=== PATIENT | female | born 1935 | race Caucasian/White ===

== ENCOUNTER 2016-07-28 09:53 | Outpatient (CLI) | END 2016-07-28 09:54 | disposition home or self-care (01) ==

== ENCOUNTER 2016-09-03 08:24 | Outpatient (CLI) | payer MEDICARE, BC | END 2016-09-03 08:25 | disposition home or self-care (01) | DX: E78.2 Mixed hyperlipidemia (principal); E03.9 Hypothyroidism, unspecified; Z79.899 Other long term (current) drug therapy ==

== ENCOUNTER 2017-05-11 13:05 | Outpatient (CLI) | payer MEDICARE, BC | END 2017-05-11 13:06 | disposition home or self-care (01) | LOC: LAB 13:05 | PROVIDERS: ATTEND Internal Medicine Rheumatology | DX: M81.0 Age-related osteoporosis without current pathological fracture (principal) | CPT/HCPCS: 36415; 82306 ==

== ENCOUNTER 2017-09-03 08:46 | Outpatient (CLI) | payer MEDICARE, BC ==
[2017-09-03 12:52] LABS: BASOPHILS # (AUTO) 0.1 10^3/uL (0.0-0.1); BASOPHILS % (AUTO) 1.3 %; EOSINOPHILS # (AUTO) 0.1 10^3/uL (0.0-0.7); EOSINOPHILS % (AUTO) 1.4 %; HGB - HEMOGLOBIN 12.2 g/dL (12.0-16.0); LYMPHOCYTES % (AUTO) 21.7 %; MEAN CORPUSCULAR HEMOGLOBIN 33.9 pg (27.0-31.0); MEAN CORPUSCULAR HGB CONC 34.1 g/dL (32.0-36.0); MEAN CORPUSCULAR VOLUME 99.5 fL (81.0-99.0); MONOCYTES # (AUTO) 0.4 10^3/uL (0.0-1.0); MONOCYTES % (AUTO) 7.8 %; NEUTROPHILS # (AUTO) 3.2 10^3/uL (1.5-6.6); NEUTROPHILS % (AUTO) 67.8 %; PLT - PLATELET COUNT 271 10^3/uL (130-450); RED CELL DISTRIBUTION WIDTH 14.2 % (12.0-15.0); WHITE BLOOD COUNT 4.7 x10^3/uL (4.8-10.8)
[2017-09-03 13:04] LABS: ALBUMIN 3.4 g/dL (3.2-5.5); ALKALINE PHOSPHATASE 36 IU/L (42-121); ALT ALANINE AMINOTRANSFERASE 14 IU/L (10-60); AST ASPARTATE AMINOTRANSFERASE 27 IU/L (10-42); BILIRUBIN,TOTAL 0.6 mg/dL (0.2-1.0); BUN - BLOOD UREA NITROGEN 20 mg/dL (6-20); CALCIUM 8.7 mg/dL (8.5-10.3); CARBON DIOXIDE - CO2 27 mmol/L (21-32); CHLORIDE 97 mmol/L (101-111); CHOL/HDL RATIO 1.9 (<4.4); CHOLESTEROL 160 mg/dL; CREATININE 0.8 mg/dL (0.4-1.0); GFR - MDRD 69 (>89); GLUCOSE 80 mg/dL (70-100); HDL CHOLESTEROL 85 mg/dL; LDL CHOLESTEROL,CALCULATED 61 mg/dL; LDL/HDL RATIO 0.7 (<4.4); SODIUM 132 mmol/L (135-145); TOTAL PROTEIN 6.8 g/dL (6.7-8.2); VLDL CHOLESTEROL 14 mg/dL
== END 2017-09-03 08:47 | disposition home or self-care (01) ==
LOC: LAB.R 08:46
PROVIDERS: ATTEND Internal Medicine
DX: M81.0 Age-related osteoporosis without current pathological fracture (principal); E03.9 Hypothyroidism, unspecified; E78.5 Hyperlipidemia, unspecified; I10 Essential (primary) hypertension; M12.9 Arthropathy, unspecified; Z79.899 Other long term (current) drug therapy
CPT/HCPCS: 80053; 80061; 83721; 84443; 85025

== ENCOUNTER 2018-05-24 14:06 | Outpatient (CLI) | payer MEDICARE, BC ==
[2018-05-24 14:48] LABS: BASOPHILS # (AUTO) 0.1 10^3/uL (0.0-0.1); BASOPHILS % (AUTO) 1.4 %; EOSINOPHILS % (AUTO) 0.8 %; HGB - HEMOGLOBIN 11.9 g/dL (12.0-16.0); LYMPHOCYTES # (AUTO) 0.6 10^3/uL (1.5-3.5); MEAN CORPUSCULAR HEMOGLOBIN 34.5 pg (27.0-31.0); MEAN CORPUSCULAR HGB CONC 34.5 g/dL (32.0-36.0); MEAN CORPUSCULAR VOLUME 100.1 fL (81.0-99.0); MEAN PLATELET VOLUME 7.4 fL (7.9-10.8); MONOCYTES # (AUTO) 0.2 10^3/uL (0.0-1.0); MONOCYTES % (AUTO) 4.1 %; NEUTROPHILS # (AUTO) 4.8 10^3/uL (1.5-6.6); NEUTROPHILS % (AUTO) 82.7 %; PLT - PLATELET COUNT 317 10^3/uL (130-450); RED BLOOD COUNT 3.44 10^6/uL (4.20-5.40); RED CELL DISTRIBUTION WIDTH 14.1 % (12.0-15.0); WHITE BLOOD COUNT 5.8 x10^3/uL (4.8-10.8)
[2018-05-24 14:52] LABS: ALBUMIN 3.6 g/dL (3.2-5.5); ALKALINE PHOSPHATASE 45 IU/L (42-121); ALT ALANINE AMINOTRANSFERASE 15 IU/L (10-60); AST ASPARTATE AMINOTRANSFERASE 32 IU/L (10-42); BILIRUBIN,TOTAL 0.8 mg/dL (0.2-1.0); BUN - BLOOD UREA NITROGEN 23 mg/dL (6-20); CALCIUM 8.9 mg/dL (8.5-10.3); CARBON DIOXIDE - CO2 29 mmol/L (21-32); CHLORIDE 96 mmol/L (101-111); CREATININE 0.7 mg/dL (0.4-1.0); GFR - MDRD 80 (>89); GLUCOSE 112 mg/dL (70-100); SODIUM 133 mmol/L (135-145); TOTAL PROTEIN 7.1 g/dL (6.7-8.2)
[2018-05-24 15:05] LABS: CRP - C-REACTIVE PROTEIN < 1.0 mg/dL (0-1.0)
== END 2018-05-24 14:07 | disposition home or self-care (01) ==
LOC: LAB 14:06
PROVIDERS: ATTEND Nurse Practitioner Family
DX: M05.9 Rheumatoid arthritis with rheumatoid factor, unspecified (principal); Z79.899 Other long term (current) drug therapy; Z51.81 Encounter for therapeutic drug level monitoring; M81.0 Age-related osteoporosis without current pathological fracture
CPT/HCPCS: 36415; 80053; 82306; 85025; 85651; 86140

== ENCOUNTER 2018-09-08 12:57 | Outpatient (CLI) | payer MEDICARE, BC ==
[2018-09-08 13:33] LABS: BASOPHILS # (AUTO) 0.1 10^3/uL (0.0-0.1); EOSINOPHILS # (AUTO) 0.1 10^3/uL (0.0-0.7); EOSINOPHILS % (AUTO) 0.8 %; HGB - HEMOGLOBIN 12.5 g/dL (12.0-16.0); LYMPHOCYTES # (AUTO) 0.6 10^3/uL (1.5-3.5); LYMPHOCYTES % (AUTO) 8.5 %; MEAN CORPUSCULAR HGB CONC 34.5 g/dL (32.0-36.0); MEAN CORPUSCULAR VOLUME 98.4 fL (81.0-99.0); MEAN PLATELET VOLUME 6.8 fL (7.9-10.8); MONOCYTES # (AUTO) 0.4 10^3/uL (0.0-1.0); MONOCYTES % (AUTO) 5.7 %; NEUTROPHILS # (AUTO) 6.2 10^3/uL (1.5-6.6); PLT - PLATELET COUNT 354 10^3/uL (130-450); RED BLOOD COUNT 3.69 10^6/uL (4.20-5.40); RED CELL DISTRIBUTION WIDTH 14.3 % (12.0-15.0); WHITE BLOOD COUNT 7.4 x10^3/uL (4.8-10.8)
[2018-09-08 13:55] LABS: ALBUMIN 3.6 g/dL (3.2-5.5); ALKALINE PHOSPHATASE 43 IU/L (42-121); ALT ALANINE AMINOTRANSFERASE 16 IU/L (10-60); AST ASPARTATE AMINOTRANSFERASE 31 IU/L (10-42); BILIRUBIN,TOTAL 0.7 mg/dL (0.2-1.0); BUN - BLOOD UREA NITROGEN 17 mg/dL (6-20); CALCIUM 8.8 mg/dL (8.5-10.3); CARBON DIOXIDE - CO2 29 mmol/L (21-32); CHLORIDE 93 mmol/L (101-111); CREATININE 0.8 mg/dL (0.4-1.0); GFR - MDRD 69 (>89); GLUCOSE 99 mg/dL (70-100); SODIUM 132 mmol/L (135-145); TOTAL PROTEIN 7.2 g/dL (6.7-8.2)
[2018-09-08 14:24] LABS: CRP - C-REACTIVE PROTEIN < 1.0 mg/dL (0-1.0)
== END 2018-09-08 12:58 | disposition home or self-care (01) ==
LOC: LAB 12:57
PROVIDERS: ATTEND Nurse Practitioner Family
DX: M81.0 Age-related osteoporosis without current pathological fracture (principal); Z79.899 Other long term (current) drug therapy; Z51.81 Encounter for therapeutic drug level monitoring; M05.9 Rheumatoid arthritis with rheumatoid factor, unspecified
CPT/HCPCS: 36415; 80053; 82306; 85025; 85651; 86140

== ENCOUNTER 2018-10-18 12:11 | Outpatient (CLI) | payer MEDICARE, BC | END 2018-10-18 12:12 | disposition home or self-care (01) | LOC: LAB 12:11 | PROVIDERS: ATTEND Family Medicine | DX: E03.9 Hypothyroidism, unspecified (principal) | CPT/HCPCS: 36415; 84443 ==

== ENCOUNTER 2018-12-15 11:59 | Outpatient (CLI) | payer MEDICARE, BC ==
[2018-12-15 12:17] LABS: BASOPHILS # (AUTO) 0.1 10^3/uL (0.0-0.1); BASOPHILS % (AUTO) 1.6 %; EOSINOPHILS % (AUTO) 0.7 %; HGB - HEMOGLOBIN 12.5 g/dL (12.0-16.0); LYMPHOCYTES # (AUTO) 0.5 10^3/uL (1.5-3.5); MEAN CORPUSCULAR HEMOGLOBIN 33.5 pg (27.0-31.0); MEAN CORPUSCULAR HGB CONC 33.5 g/dL (32.0-36.0); MEAN CORPUSCULAR VOLUME 99.9 fL (81.0-99.0); MEAN PLATELET VOLUME 7.1 fL (7.9-10.8); MONOCYTES # (AUTO) 0.4 10^3/uL (0.0-1.0); MONOCYTES % (AUTO) 5.2 %; NEUTROPHILS # (AUTO) 5.9 10^3/uL (1.5-6.6); NEUTROPHILS % (AUTO) 85.5 %; PLT - PLATELET COUNT 304 10^3/uL (130-450); RED BLOOD COUNT 3.72 10^6/uL (4.20-5.40); RED CELL DISTRIBUTION WIDTH 14.2 % (12.0-15.0); WHITE BLOOD COUNT 6.9 x10^3/uL (4.8-10.8)
[2018-12-15 12:33] LABS: ALBUMIN 3.8 g/dL (3.2-5.5); ALBUMIN/GLOBULIN RATIO 1.1 (1.0-2.2); ALKALINE PHOSPHATASE 48 IU/L (42-121); ALT ALANINE AMINOTRANSFERASE 15 IU/L (10-60); AST ASPARTATE AMINOTRANSFERASE 37 IU/L (10-42); BILIRUBIN,TOTAL 0.7 mg/dL (0.2-1.0); BUN - BLOOD UREA NITROGEN 21 mg/dL (6-20); CALCIUM 9.1 mg/dL (8.5-10.3); CARBON DIOXIDE - CO2 28 mmol/L (21-32); CHLORIDE 96 mmol/L (101-111); CREATININE 0.9 mg/dL (0.4-1.0); GFR - MDRD 60 (>89); GLUCOSE 106 mg/dL (70-100); SODIUM 136 mmol/L (135-145); TOTAL PROTEIN 7.4 g/dL (6.7-8.2)
[2018-12-15 12:36] LABS: CRP - C-REACTIVE PROTEIN < 1.0 mg/dL (0-1.0)
== END 2018-12-15 12:00 | disposition home or self-care (01) ==
LOC: LAB 11:59
PROVIDERS: ATTEND Nurse Practitioner Family
DX: M05.9 Rheumatoid arthritis with rheumatoid factor, unspecified (principal); M81.0 Age-related osteoporosis without current pathological fracture; Z79.899 Other long term (current) drug therapy
CPT/HCPCS: 36415; 80053; 85025; 85651; 86140

== ENCOUNTER 2019-06-27 11:41 | Outpatient (CLI) | payer MEDICARE, BC ==
[2019-06-27 12:15] LABS: BASOPHILS # (AUTO) 0.1 10^3/uL (0.0-0.1); BASOPHILS % (AUTO) 1.5 %; EOSINOPHILS # (AUTO) 0.1 10^3/uL (0.0-0.7); EOSINOPHILS % (AUTO) 0.8 %; HGB - HEMOGLOBIN 11.4 g/dL (12.0-16.0); LYMPHOCYTES # (AUTO) 0.6 10^3/uL (1.5-3.5); LYMPHOCYTES % (AUTO) 7.7 %; MEAN CORPUSCULAR HEMOGLOBIN 33.2 pg (27.0-31.0); MEAN CORPUSCULAR HGB CONC 32.1 g/dL (32.0-36.0); MEAN CORPUSCULAR VOLUME 103.5 fL (81.0-99.0); MEAN PLATELET VOLUME 9.2 fL (7.9-10.8); MONOCYTES # (AUTO) 0.5 10^3/uL (0.0-1.0); MONOCYTES % (AUTO) 6.2 %; NEUTROPHILS # (AUTO) 6.1 10^3/uL (1.5-6.6); NEUTROPHILS % (AUTO) 83.3 %; PLT - PLATELET COUNT 279 10^3/uL (130-450); RED BLOOD COUNT 3.43 10^6/uL (4.20-5.40); RED CELL DISTRIBUTION WIDTH 13.9 % (12.0-15.0); WHITE BLOOD COUNT 7.3 x10^3/uL (4.8-10.8)
[2019-06-27 12:32] LABS: ALBUMIN 3.6 g/dL (3.2-5.5); ALBUMIN/GLOBULIN RATIO 1.1 (1.0-2.2); ALKALINE PHOSPHATASE 42 IU/L (42-121); ALT ALANINE AMINOTRANSFERASE 19 IU/L (10-60); AST ASPARTATE AMINOTRANSFERASE 34 IU/L (10-42); BILIRUBIN,TOTAL 0.8 mg/dL (0.2-1.0); BUN - BLOOD UREA NITROGEN 25 mg/dL (6-20); CALCIUM 8.5 mg/dL (8.5-10.3); CARBON DIOXIDE - CO2 29 mmol/L (21-32); CHLORIDE 98 mmol/L (101-111); CREATININE 0.9 mg/dL (0.4-1.0); GFR - MDRD 60 (>89); GLUCOSE 95 mg/dL (70-100); SODIUM 135 mmol/L (135-145); TOTAL PROTEIN 6.8 g/dL (6.7-8.2)
[2019-06-27 14:14] LABS: CRP - C-REACTIVE PROTEIN < 1.0 mg/dL (0-1.0)
== END 2019-06-27 11:42 | disposition home or self-care (01) ==
LOC: LAB 11:41
PROVIDERS: ATTEND Internal Medicine Rheumatology
DX: M05.9 Rheumatoid arthritis with rheumatoid factor, unspecified (principal)
CPT/HCPCS: 36415; 80053; 85025; 85651; 86140

== ENCOUNTER 2020-02-05 10:21 | Outpatient (CLI) | payer MEDICARE, BC ==
[2020-02-05 10:34] LABS: BASOPHILS # (AUTO) 0.1 10^3/uL (0.0-0.1); BASOPHILS % (AUTO) 2.2 %; EOSINOPHILS # (AUTO) 0.1 10^3/uL (0.0-0.7); EOSINOPHILS % (AUTO) 1.4 %; HGB - HEMOGLOBIN 12.6 g/dL (12.0-16.0); LYMPHOCYTES % (AUTO) 20.4 %; MEAN CORPUSCULAR HEMOGLOBIN 34.9 pg (27.0-31.0); MEAN CORPUSCULAR HGB CONC 32.9 g/dL (32.0-36.0); MEAN CORPUSCULAR VOLUME 106.1 fL (81.0-99.0); MEAN PLATELET VOLUME 9.2 fL (7.9-10.8); MONOCYTES # (AUTO) 0.5 10^3/uL (0.0-1.0); MONOCYTES % (AUTO) 10.7 %; NEUTROPHILS # (AUTO) 3.2 10^3/uL (1.5-6.6); NEUTROPHILS % (AUTO) 64.9 %; PLT - PLATELET COUNT 238 10^3/uL (130-450); RED BLOOD COUNT 3.61 10^6/uL (4.20-5.40); RED CELL DISTRIBUTION WIDTH 13.3 % (12.0-15.0)
[2020-02-05 10:56] LABS: ALBUMIN 3.7 g/dL (3.2-5.5); ALBUMIN/GLOBULIN RATIO 1.2 (1.0-2.2); ALKALINE PHOSPHATASE 45 IU/L (42-121); ALT ALANINE AMINOTRANSFERASE 17 IU/L (10-60); AST ASPARTATE AMINOTRANSFERASE 33 IU/L (10-42); BUN - BLOOD UREA NITROGEN 24 mg/dL (6-20); CALCIUM 8.9 mg/dL (8.5-10.3); CARBON DIOXIDE - CO2 31 mmol/L (21-32); CHLORIDE 95 mmol/L (101-111); CREATININE 0.8 mg/dL (0.4-1.0); GLUCOSE 105 mg/dL (70-100); SODIUM 132 mmol/L (135-145); TOTAL PROTEIN 6.8 g/dL (6.7-8.2)
[2020-02-05 11:14] LABS: CRP - C-REACTIVE PROTEIN < 1.0 mg/dL (0-1.0)
== END 2020-02-05 10:22 | disposition home or self-care (01) ==
LOC: LAB 10:21
PROVIDERS: ATTEND Internal Medicine Rheumatology
DX: M05.9 Rheumatoid arthritis with rheumatoid factor, unspecified (principal); Z79.899 Other long term (current) drug therapy
CPT/HCPCS: 36415; 80053; 85025; 86140

== ENCOUNTER 2020-05-22 16:02 | Outpatient (CLI) | payer MEDICARE, BC ==
[2020-05-22 16:21] LABS: BASOPHILS # (AUTO) 0.1 10^3/uL (0.0-0.1); BASOPHILS % (AUTO) 1.2 %; EOSINOPHILS % (AUTO) 0.7 %; HGB - HEMOGLOBIN 12.8 g/dL (12.0-16.0); LYMPHOCYTES # (AUTO) 0.5 10^3/uL (1.5-3.5); LYMPHOCYTES % (AUTO) 8.9 %; MEAN CORPUSCULAR HEMOGLOBIN 34.8 pg (27.0-31.0); MEAN CORPUSCULAR VOLUME 105.4 fL (81.0-99.0); MEAN PLATELET VOLUME 9.4 fL (7.9-10.8); MONOCYTES # (AUTO) 0.3 10^3/uL (0.0-1.0); MONOCYTES % (AUTO) 4.9 %; NEUTROPHILS # (AUTO) 4.8 10^3/uL (1.5-6.6); NEUTROPHILS % (AUTO) 83.9 %; PLT - PLATELET COUNT 267 10^3/uL (130-450); RED BLOOD COUNT 3.68 10^6/uL (4.20-5.40); RED CELL DISTRIBUTION WIDTH 13.3 % (12.0-15.0); WHITE BLOOD COUNT 5.7 x10^3/uL (4.8-10.8)
[2020-05-22 16:36] LABS: ALBUMIN 3.9 g/dL (3.2-5.5); ALBUMIN/GLOBULIN RATIO 1.3 (1.0-2.2); ALKALINE PHOSPHATASE 47 IU/L (42-121); ALT ALANINE AMINOTRANSFERASE 18 IU/L (10-60); AST ASPARTATE AMINOTRANSFERASE 31 IU/L (10-42); BILIRUBIN,TOTAL 0.5 mg/dL (0.2-1.0); BUN - BLOOD UREA NITROGEN 27 mg/dL (6-20); CALCIUM 8.9 mg/dL (8.5-10.3); CARBON DIOXIDE - CO2 28 mmol/L (21-32); CHLORIDE 96 mmol/L (101-111); CREATININE 0.9 mg/dL (0.4-1.0); GLUCOSE 109 mg/dL (70-100); SODIUM 135 mmol/L (135-145)
[2020-05-22 16:41] LABS: CRP - C-REACTIVE PROTEIN < 1.0 mg/dL (0-1.0)
== END 2020-05-22 16:03 | disposition home or self-care (01) ==
LOC: LAB 16:02
PROVIDERS: ATTEND Internal Medicine Rheumatology
DX: M05.9 Rheumatoid arthritis with rheumatoid factor, unspecified (principal); Z79.899 Other long term (current) drug therapy
CPT/HCPCS: 36415; 80053; 85025; 85651; 86140

== ENCOUNTER 2020-10-10 13:23 | Outpatient (CLI) | payer MEDICARE, BC ==
[2020-10-10 13:51] LABS: BASOPHILS # (AUTO) 0.1 10^3/uL (0.0-0.1); BASOPHILS % (AUTO) 1.6 %; EOSINOPHILS # (AUTO) 0.1 10^3/uL (0.0-0.7); EOSINOPHILS % (AUTO) 0.7 %; HCT - HEMATOCRIT 39.9 % (37.0-47.0); HGB - HEMOGLOBIN 12.8 g/dL (12.0-16.0); LYMPHOCYTES # (AUTO) 0.4 10^3/uL (1.5-3.5); MEAN CORPUSCULAR HEMOGLOBIN 34.1 pg (27.0-31.0); MEAN CORPUSCULAR HGB CONC 32.1 g/dL (32.0-36.0); MEAN CORPUSCULAR VOLUME 106.4 fL (81.0-99.0); MEAN PLATELET VOLUME 9.3 fL (7.9-10.8); MONOCYTES # (AUTO) 0.4 10^3/uL (0.0-1.0); MONOCYTES % (AUTO) 5.2 %; NEUTROPHILS # (AUTO) 6.3 10^3/uL (1.5-6.6); NEUTROPHILS % (AUTO) 86.2 %; PLT - PLATELET COUNT 254 10^3/uL (130-450); RED BLOOD COUNT 3.75 10^6/uL (4.20-5.40); RED CELL DISTRIBUTION WIDTH 13.4 % (12.0-15.0); WHITE BLOOD COUNT 7.3 x10^3/uL (4.8-10.8)
[2020-10-10 14:07] LABS: ALBUMIN 3.8 g/dL (3.2-5.5); ALBUMIN/GLOBULIN RATIO 1.3 (1.0-2.2); BILIRUBIN,TOTAL 0.6 mg/dL (0.2-1.0); CALCIUM 9.1 mg/dL (8.5-10.3); CREATININE 0.9 mg/dL (0.4-1.0); POTASSIUM 4.1 mmol/L (3.5-5.0); TOTAL PROTEIN 6.8 g/dL (6.7-8.2)
== END 2020-10-10 13:24 | disposition home or self-care (01) ==
LOC: LAB 13:23
PROVIDERS: ATTEND Internal Medicine Rheumatology
DX: M05.9 Rheumatoid arthritis with rheumatoid factor, unspecified (principal); Z79.899 Other long term (current) drug therapy
CPT/HCPCS: 36415; 80053; 85025; 85651; 86140

== ENCOUNTER 2021-02-21 12:40 | Outpatient (CLI) | payer MEDICARE, BC | END 2021-02-21 12:41 | disposition critical access hospital (66) | LOC: EMS 12:40 | DX: S05.10XA Contusion of eyeball and orbital tissues, unspecified eye, initial encounter (principal); W01.198A Fall on same level from slipping, tripping and stumbling with subsequent striking against other object, initial encounter; Y93.H9 Activity, other involving exterior property and land maintenance, building and construction; Y92.008 Other place in unspecified non-institutional (private) residence as the place of occurrence of the external cause | CPT/HCPCS: A0425; A0429 ==

== ENCOUNTER 2021-02-21 12:54 | Emergency (ER) | payer MEDICARE, BC ==
--- NOTE | 2021-02-21 13:05 | ED Physician Documentation ---
PD HPI Fall - Stated complaint Stated Complaint: FALL - History obtained from History obtained from: Patient, Family, EMS - Additional information Additional information: This is a larissa 85-year-old woman with history of atrial fibrillation, reportedly not anticoagulated who had a simple mechanical trip and fall at home. She was cleaning her patio with a hose and tripped over the hose and fell backward hitting her occiput on the ground. There was no loss of consciousness. She denies headache. She does have a wound on the back of her head. Tetanus is not up-to-date. No other injuries save a bruise on the right elbow which is completely painless. 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 HEENT: Cataracts - Present Medications Home Medications: Ambulatory Orders Medication Instructions Recorded Confirmed Ascorbic Acid [Vitamin C] 1,000 mg PO DAILY 08/09/13 02/21/21 Tonny Cit/D3/K/Mag Ox/Stron/Bor 1 each PO DAILY 08/09/13 02/21/21 [Prosteon Tablet] Cholecalciferol (Vitamin D3) 1,000 unit PO DAILY 08/09/13 02/21/21 [Vitamin D] Levothyroxine Sodium [Synthroid] 25 mcg PO DAILY 08/09/13 02/21/21 Methotrexate [Methotrexate Sodium] 2.5 mg PO DAILY 08/09/13 02/21/21 Metoprolol Succinate [Toprol Xl] 50 mg PO DAILY 08/09/13 02/21/21 Multivit with Calcium,Iron,Min 1 each PO DAILY 08/09/13 02/21/21 [Essential Daily] Pravastatin Sodium [Pravachol] 20 mg PO HS 08/09/13 02/21/21 lisinopriL [Zestril] 20 mg PO DAILY 08/09/13 02/21/21 Folic Acid 1 mg PO DAILY 08/14/13 02/21/21 Hydroxychloroquine [Plaquenil] 200 mg PO DAILY 08/14/13 02/21/21 Famotidine [Pepcid] 20 mg PO DAILY 08/30/13 02/21/21 - Allergies Allergies/Adverse Reactions: Allergies Allergy/AdvReac Type Severity Reaction Status Date / Time Sulfa (Sulfonamide Allergy Mild Unknown Verified 02/21/21 14:03 Antibiotics) - Social History Does the pt smoke?: No Smoking Status: Never smoker Does the pt drink ETOH?: No Does the pt have substance abuse?: No PD ED PE NORMAL - Vitals Vital signs reviewed: Yes - General General: Alert and oriented X 3, No acute distress, Other (Is an abrasion on the right upper occiput with mild underlying swelling but no skull deformity.) - HEENT HEENT: PERRL, EOMI - Neck Neck: No bony TTP - Cardiac Cardiac: Other (Irregularly irregular without murmur) - Derm Derm: Normal color, Warm and dry - Extremities Extremities: No edema, No calf tenderness / cord, Other (Bruising on the right elbow, nontender though. FROM) - Neuro Neuro: Alert and oriented X 3, No motor deficit, No sensory deficit, Normal speech Eye Opening: Spontaneous Motor: Obeys Commands Verbal: Oriented GCS Score: 15 Results - Vitals Vitals: Vital Signs - 24 hr 02/21/21 02/21/21 02/21/21 12:55 14:02 14:27 Temperature 36.7 C Heart Rate 114 H 92 89 Respiratory 16 21 16 Rate Blood Pressure 180/106 H 151/103 H 146/107 H O2 Saturation 100 96 02/21/21 02/21/21 02/21/21 14:30 15:00 15:28 Temperature Heart Rate 86 93 94 Respiratory 22 21 12 Rate Blood Pressure 136/86 H 151/95 H 121/105 H O2 Saturation 98 97 97 02/21/21 02/21/21 02/21/21 15:30 16:00 16:30 Temperature Heart Rate 99 103 H 111 H Respiratory 16 26 H 19 Rate Blood Pressure 157/84 H 158/121 H 159/121 H O2 Saturation 97 02/21/21 02/21/21 02/21/21 17:00 17:30 18:36 Temperature Heart Rate 102 H 133 H Respiratory 18 25 H Rate Blood Pressure 164/107 H 143/99 H 169/104 H O2 Saturation 96 02/21/21 02/21/21 20:00 22:00 Temperature Heart Rate 94 87 Respiratory 18 16 Rate Blood Pressure 158/98 H 156/98 H O2 Saturation 95 96 Oxygen O2 Source Room air - EKG (time done) 1639 Rate: Rate (enter#) (103) Rhythm: Atrial fibrillation [place]: Normal Ischemia: Q waves (v1-v3). No: ST elevation c/w ischemia - Labs Labs: Laboratory Tests 02/21/21 02/21/21 02/21/21 16:05 16:05 16:05 WBC 8.9 RBC 4.19 L Hgb 14.5 Hct 43.3 MCV 103.3 H MCH 34.6 H MCHC 33.5 RDW 14.3 Plt Count 244 MPV 9.6 Neut # (Auto) 7.2 H Lymph # (Auto) 0.9 L Hooker # (Auto) 0.5 Eos # (Auto) 0.3 Baso # (Auto) 0.1 Absolute Nucleated RBC 0.00 Nucleated RBC % 0.0 PT 12.9 H INR 1.2 Sodium 136 Potassium 4.1 Chloride 99 L Carbon Dioxide 25 Anion Gap 12.0 BUN 24 H Creatinine 0.9 Estimated GFR (MDRD) 60 L Glucose 80 Calcium 9.0 Total Bilirubin 1.6 H AST 39 ALT 27 Alkaline Phosphatase 49 Troponin I High Sens B-Natriuretic Peptide Total Protein 6.8 Albumin 4.0 Globulin 2.8 Albumin/Globulin Ratio 1.4 Lipase 36 Nasal Adenovirus (PCR) Nasal B. parapertussis DNA (PCR) Nasal Coronavir 229E PCR Nasal Coronavir HKU1 PCR Nasal Coronavir NL63 PCR Nasal Coronavir OC43 PCR Nasal Enterovir/Rhinovir PCR Nasal Influenza B PCR Nasal Influenza A PCR Nasal Parainfluen 1 PCR Nasal Parainfluen 2 PCR Nasal Parainfluen 3 PCR Nasal Parainfluen 4 PCR Nasal RSV (PCR) Nasal B.pertussis DNA PCR Nasal C.pneumoniae (PCR) Tam Human Metapneumo PCR Nasal M.pneumoniae (PCR) Nasal SARS-CoV-2 (PCR) 02/21/21 02/21/21 02/21/21 16:05 16:05 17:26 WBC RBC Hgb Hct MCV MCH MCHC RDW Plt Count MPV Neut # (Auto) Lymph # (Auto) [place] # (Auto) Eos # (Auto) Baso # (Auto) Absolute Nucleated RBC Nucleated RBC % PT INR Sodium Potassium Chloride Carbon Dioxide Anion Gap BUN Creatinine Estimated GFR (MDRD) Glucose Calcium Total Bilirubin AST ALT Alkaline Phosphatase Troponin I High Sens 39.5 H* B-Natriuretic Peptide 1119 H Total Protein Albumin Globulin Albumin/Globulin Ratio Lipase Nasal Adenovirus (PCR) NOT DETECTED Nasal B. parapertussis DNA (PCR) NOT DETECTED Nasal Coronavir 229E PCR NOT DETECTED Nasal Coronavir HKU1 PCR NOT DETECTED Nasal Coronavir NL63 PCR NOT DETECTED Nasal Coronavir OC43 PCR NOT DETECTED Nasal Enterovir/Rhinovir PCR NOT DETECTED Nasal Influenza B PCR NOT DETECTED Nasal Influenza A PCR NOT DETECTED Nasal Parainfluen 1 PCR NOT DETECTED Nasal Parainfluen 2 PCR NOT DETECTED Nasal Parainfluen 3 PCR NOT DETECTED Nasal Parainfluen 4 PCR NOT DETECTED Nasal RSV (PCR) NOT DETECTED Nasal B.pertussis DNA PCR NOT DETECTED Nasal C.pneumoniae (PCR) NOT DETECTED Tam Human Metapneumo PCR NOT DETECTED Nasal M.pneumoniae (PCR) NOT DETECTED Nasal SARS-CoV-2 (PCR) NOT DETECTED - Rads (name of study) CT Head and Cspine Radiology: EMP read contemporaneously (Head neg, see MDM re cspine) PD MEDICAL DECISION MAKING - ED course ED course: 1. Findings are consistent with anterior ligamentous disruption at C4-C5. There is significant anterolisthesis of C4 on C5 with anterior disc space widening. There are also possible bilateral C4 lamina fractures. It is difficult to determine whether these findings are acute or chronic. 2. Probable C2 spinous process fracture. 3. Question C4 lamina fractures. 4. There is a severe acute T3 compression. Question pathologic compression. 5. A C7 lucent lesion is a probable hemangioma. 6. 2.7 cm right thyroid nodule. 85-year-old woman presents after a ground-level fall in the back of her head. She has abrasions in the back of her head and over the thoracic spine. There is no spinal tenderness. Given advanced age head and neck CTs were done with abnormal findings as shown above. Given the cervical spine issues she was placed in a collar and a call was placed to [facility] for consultation and likely transfer. Of note she is in atrial fibrillation, this is thought to be a new phenomenon over the last few months as she has been more fatigued with ankle swelling and some shortness of breath over the last few months. In contrast to the initial history she did not have a history of that, there was some miscommunication prehospital about that. She is probably in congestive heart failure because of that and needs both the trauma and medical work-up. Accept[place] by Dr Keira Mata [place] [facility] [place] - Departure Disposition: 02 Transfer Acute Care Hosp Clinical Impression: Closed fracture of cervical vertebra, Afib, Injury of head and neck Discharge Date/Time: 02/21/21 22:55
[2021-02-21] MEDS ORDERED: TETANUS/DIPHTHERIA/PERTUSSIS 0.5 ML SYRINGE IM ONE (13:09)
--- NOTE | 2021-02-21 15:52 | CT Report ---
PROCEDURE: CERVICAL SPINE WO INDICATIONS: head injury TECHNIQUE: Noncontrast 3 mm thick sections acquired from the skull base to the T4 level. Sagittal and coronal r eformats were then constructed. For radiation dose reduction, the following was used: automated exp osure control, adjustment of mA and/or kV according to patient size. COMPARISON: None. FINDINGS: Image quality: Excellent. Bones: There appears to be a C2 spinous process fracture. There is anterolisthesis of C4 on C5 which measures 5 cm. There is anterior widening of the disc space. Findings are consistent with significant anterior spinal ligament ligamentous disruption. Interestingly, there is no prevertebral soft tissue swelling at this level. Possible C4 lamina fractures. Mild retrolisthesis of L3 on L4 may be a chron ic finding. There is a severe acute T3 compression. Cannot exclude pathologic compression of this chi tebra. There is significant lucency in the C7 vertebral body, possibly representing a metastatic lesi on versus a hemangioma. Visualized superior ribs are intact. Soft tissues: Prevertebral soft tissues are normal in thickness. No paravertebral hematomas. No ap ical pneumothoraces. 2.7 cm right thyroid nodule. IMPRESSION: 1. Findings are consistent with anterior ligamentous disruption at C4-C5. There is significant evin listhesis of C4 on C5 with anterior disc space widening. There are also possible bilateral C4 lamina fractures. It is difficult to determine whether these findings are acute or chronic. 2. Probable C2 spinous process fracture. 3. Question C4 lamina fractures. 4. There is a severe acute T3 compression. Question pathologic compression. 5. A C7 lucent lesion is a probable hemangioma. 6. 2.7 cm right thyroid nodule. Above discussed with Dr. Tony Corral at the time of dictation on 02/21/2021 at 1551 hours. Reviewed by: Giacomo Levi MD on 02/21/2021 3:51 PM PDT Approved by: Giacomo Levi MD on 02/21/2021 3:51 PM PDT Station ID: [id number]
--- NOTE | 2021-02-21 15:52 | CT Report ---
PROCEDURE: HEAD WO INDICATIONS: Head injury TECHNIQUE: Noncontrast 4.5 mm thick angled axial sections acquired from the foramen magnum to the vertex. For r adiation dose reduction, the following was used: automated exposure control, adjustment of mA and/or kV according to patient size. COMPARISON: None. FINDINGS: Image quality: Excellent. CSF spaces: Basal cisterns are patent. No extra-axial fluid collections. Ventricles are normal in size and shape. Brain: No midline shift. No intracranial masses or hemorrhage. Morgan-white matter interface is norm al. Calcifications of the falx. Skull and face: Calvarium and visualized facial bones are intact, without suspicious lesions. Sinuses: Visualized sinuses and mastoids are clear. IMPRESSION: No acute intracranial abnormality. Reviewed by: Polo Goldberg MD on 02/21/2021 3:51 PM PDT Approved by: Polo Goldberg MD on 02/21/2021 3:51 PM PDT Station ID: [id number]
[2021-02-21 16:14] LABS: BASOPHILS # (AUTO) 0.1 10^3/uL (0.0-0.1); BASOPHILS % (AUTO) 0.9 %; EOSINOPHILS # (AUTO) 0.3 10^3/uL (0.0-0.7); EOSINOPHILS % (AUTO) 2.8 %; HCT - HEMATOCRIT 43.3 % (37.0-47.0); HGB - HEMOGLOBIN 14.5 g/dL (12.0-16.0); LYMPHOCYTES # (AUTO) 0.9 10^3/uL (1.5-3.5); LYMPHOCYTES % (AUTO) 9.8 %; MEAN CORPUSCULAR HEMOGLOBIN 34.6 pg (27.0-31.0); MEAN CORPUSCULAR HGB CONC 33.5 g/dL (32.0-36.0); MEAN CORPUSCULAR VOLUME 103.3 fL (81.0-99.0); MEAN PLATELET VOLUME 9.6 fL (7.9-10.8); MONOCYTES # (AUTO) 0.5 10^3/uL (0.0-1.0); MONOCYTES % (AUTO) 5.3 %; NEUTROPHILS # (AUTO) 7.2 10^3/uL (1.5-6.6); NEUTROPHILS % (AUTO) 80.6 %; PLT - PLATELET COUNT 244 10^3/uL (130-450); RED BLOOD COUNT 4.19 10^6/uL (4.20-5.40); RED CELL DISTRIBUTION WIDTH 14.3 % (12.0-15.0); WHITE BLOOD COUNT 8.9 x10^3/uL (4.8-10.8)
[2021-02-21 16:20] LABS: INR 1.2 (0.8-1.2); PT - PROTHROMBIN TIME 12.9 secs (9.9-12.6)
[2021-02-21 16:29] LABS: ALBUMIN/GLOBULIN RATIO 1.4 (1.0-2.2); BILIRUBIN,TOTAL 1.6 mg/dL (0.2-1.0); CREATININE 0.9 mg/dL (0.4-1.0); POTASSIUM 4.1 mmol/L (3.5-5.0); TOTAL PROTEIN 6.8 g/dL (6.7-8.2)
--- NOTE | 2021-02-21 16:31 | XRAY Report ---
PROCEDURE: Chest 1 View X-Ray INDICATIONS: Chest Pain TECHNIQUE: One view of the chest was acquired. COMPARISON: 07/28/2016 FINDINGS: Surgical changes and devices: None. Lungs and pleura: No pleural effusions or pneumothorax. Lungs are clear. Question left apical pulmo nary nodule overlying the posterior left fifth rib. Mediastinum: Mediastinal contours appear normal. Heart size is normal. Bones and chest wall: No suspicious bony lesions. Overlying soft tissues appear unremarkable. IMPRESSION: Question left apical pulmonary nodule. No acute infiltrate seen. Reviewed by: Giacomo Levi MD on 02/21/2021 4:29 PM PDT Approved by: Giacoom Levi MD on 02/21/2021 4:29 PM PDT Station ID: [id number]
[2021-02-21 18:47] LABS: B. PARAPERTUSSIS- RESP PCR PAN NOT DETECTED; B. PERTUSSIS- RESP PCR PANEL NOT DETECTED; C. PNEUMONIAE- RESP PCR PANEL NOT DETECTED; CORONAVIRUS 229E-RESP PCR NOT DETECTED; CORONAVIRUS HKU1-RESP PCR NOT DETECTED; CORONAVIRUS NL63-RESP PCR NOT DETECTED; CORONAVIRUS OC43-RESP PCR NOT DETECTED; HUMAN METAPNEUMOVIRUS NOT DETECTED; INFLUENZA A- RESP PCR PANEL NOT DETECTED; INFLUENZA B - RESP PCR PANEL NOT DETECTED; M. PNEUMONIAE- RESP PCR PANEL NOT DETECTED; PARAINFLUENZA VIRUS 1 NOT DETECTED; PARAINFLUENZA VIRUS 2 NOT DETECTED; PARAINFLUENZA VIRUS 3 NOT DETECTED; PARAINFLUENZA VIRUS 4 NOT DETECTED; RHINOVIRUS/ENTEROVIRUS NOT DETECTED; RSV- RESP PCR PANEL NOT DETECTED; SARS-CoV-2 -RESP PCR PANEL NOT DETECTED
[2021-02-21 22:36] VITALS: BP 156/98
== END 2021-02-21 22:55 | disposition short-term general hospital (02) ==
LOC: EDUNIT# → ED 12:54
DX: S12.101A Unspecified nondisplaced fracture of second cervical vertebra, initial encounter for closed fracture (principal); S09.90XA Unspecified injury of head, initial encounter; S00.01XA Abrasion of scalp, initial encounter; S50.01XA Contusion of right elbow, initial encounter; W01.0XXA Fall on same level from slipping, tripping and stumbling without subsequent striking against object, initial encounter; Y93.H9 Activity, other involving exterior property and land maintenance, building and construction; Y92.008 Other place in unspecified non-institutional (private) residence as the place of occurrence of the external cause; Z23 Encounter for immunization; I48.91 Unspecified atrial fibrillation; I10 Essential (primary) hypertension; R06.02 Shortness of breath; R60.0 Localized edema; Z20.822 Contact with and (suspected) exposure to COVID-19
CPT/HCPCS: 0202U; 36415; 80053; 83690; 83880; 84484; 85025; 85610; 90471; 93005; 99284; 99285

== ENCOUNTER 2021-02-21 22:30 | Outpatient (CLI) | payer MEDICARE, BC | END 2021-02-21 22:31 | disposition short-term general hospital (02) | LOC: EMS 22:30 | PROVIDERS: ATTEND Emergency Medicine | DX: S12.9XXA Fracture of neck, unspecified, initial encounter (principal); S22.009A Unspecified fracture of unspecified thoracic vertebra, initial encounter for closed fracture; W01.0XXA Fall on same level from slipping, tripping and stumbling without subsequent striking against object, initial encounter; I48.91 Unspecified atrial fibrillation; I50.9 Heart failure, unspecified; S05.10XA Contusion of eyeball and orbital tissues, unspecified eye, initial encounter; W01.198A Fall on same level from slipping, tripping and stumbling with subsequent striking against other object, initial encounter; Y93.H9 Activity, other involving exterior property and land maintenance, building and construction; Y92.008 Other place in unspecified non-institutional (private) residence as the place of occurrence of the external cause | CPT/HCPCS: A0425; A0426; A0429 ==

== ENCOUNTER 2021-03-13 10:39 | Outpatient (CLI) | payer MEDICARE, BC ==
[2021-03-13 18:07] LABS: CALCIUM 8.8 mg/dL (8.5-10.3); CREATININE 0.9 mg/dL (0.4-1.0); POTASSIUM 3.5 mmol/L (3.5-5.0)
[2021-03-13 18:40] LABS: THYROID STIMULATING HORMONE 4.62 uIU/mL (0.34-5.60)
[2021-03-13 18:42] LABS: FREE T3 3.21 pg/mL (2.5-3.9); FREE T4 (FREE THYROXINE) 1.2 ng/dL (0.58-1.64)
== END 2021-03-13 23:59 | disposition home or self-care (01) ==
LOC: LAB.WCP 10:39
PROVIDERS: ATTEND Family Medicine
DX: Z79.899 Other long term (current) drug therapy (principal); R63.4 Abnormal weight loss; I10 Essential (primary) hypertension; E03.9 Hypothyroidism, unspecified
CPT/HCPCS: 36415; 80048; 84439; 84443; 84481

== ENCOUNTER 2021-03-18 11:18 | Outpatient (CLI) | payer MEDICARE, BC ==
[2021-03-18 11:34] LABS: BASOPHILS # (AUTO) 0.2 10^3/uL (0.0-0.1); EOSINOPHILS # (AUTO) 1.2 10^3/uL (0.0-0.7); EOSINOPHILS % (AUTO) 15.9 %; HCT - HEMATOCRIT 39.5 % (37.0-47.0); HGB - HEMOGLOBIN 12.8 g/dL (12.0-16.0); LYMPHOCYTES # (AUTO) 0.8 10^3/uL (1.5-3.5); LYMPHOCYTES % (AUTO) 10.3 %; MEAN CORPUSCULAR HEMOGLOBIN 34.5 pg (27.0-31.0); MEAN CORPUSCULAR HGB CONC 32.4 g/dL (32.0-36.0); MEAN CORPUSCULAR VOLUME 106.5 fL (81.0-99.0); MEAN PLATELET VOLUME 9.4 fL (7.9-10.8); MONOCYTES # (AUTO) 0.5 10^3/uL (0.0-1.0); MONOCYTES % (AUTO) 6.7 %; NEUTROPHILS # (AUTO) 4.7 10^3/uL (1.5-6.6); NEUTROPHILS % (AUTO) 64.4 %; PLT - PLATELET COUNT 308 10^3/uL (130-450); RED BLOOD COUNT 3.71 10^6/uL (4.20-5.40); RED CELL DISTRIBUTION WIDTH 14.1 % (12.0-15.0); WHITE BLOOD COUNT 7.4 x10^3/uL (4.8-10.8)
[2021-03-18 11:40] LABS: SLIDE REVIEW? Indicated
[2021-03-18 11:53] LABS: ALBUMIN 3.9 g/dL (3.2-5.5); ALBUMIN/GLOBULIN RATIO 1.4 (1.0-2.2); ALKALINE PHOSPHATASE 61 IU/L (42-121); ALT ALANINE AMINOTRANSFERASE 28 IU/L (10-60); AST ASPARTATE AMINOTRANSFERASE 41 IU/L (10-42); BILIRUBIN,TOTAL 1.3 mg/dL (0.2-1.0); BUN - BLOOD UREA NITROGEN 28 mg/dL (6-20); CALCIUM 9.2 mg/dL (8.5-10.3); CARBON DIOXIDE - CO2 31 mmol/L (21-32); CHLORIDE 97 mmol/L (101-111); CREATININE 0.9 mg/dL (0.4-1.0); GFR - MDRD 60 (>89); GLUCOSE 97 mg/dL (70-100); POTASSIUM 3.8 mmol/L (3.5-5.0); SODIUM 137 mmol/L (135-145); TOTAL PROTEIN 6.7 g/dL (6.7-8.2)
[2021-03-18 12:02] LABS: RBC MORPHOLOGY (MULTIPLE) 1+ ANISOCYTOSIS (NORMAL)
[2021-03-18 13:08] LABS: CRP - C-REACTIVE PROTEIN < 1.0 mg/dL (0-1.0)
== END 2021-03-18 11:19 | disposition home or self-care (01) ==
LOC: LAB 11:18
PROVIDERS: ATTEND Internal Medicine Rheumatology
DX: M05.9 Rheumatoid arthritis with rheumatoid factor, unspecified (principal); Z79.899 Other long term (current) drug therapy
CPT/HCPCS: 36415; 80053; 85025; 85651; 86140

== ENCOUNTER 2023-02-05 12:46 | Outpatient (CLI) | payer MEDICARE, BC ==
--- NOTE | 2023-02-05 13:32 | CT Report ---
PROCEDURE: HEAD WO INDICATIONS: FALL, INCREASE IOP TECHNIQUE: Noncontrast 4.5 mm thick angled axial sections acquired from the foramen magnum to the vertex. For r adiation dose reduction, the following was used: automated exposure control, adjustment of mA and/or kV according to patient size. COMPARISON: None. FINDINGS: Image quality: Excellent. CSF spaces: Basal cisterns are patent. No extra-axial fluid collections. Ventricles are normal in size and shape. Brain: No midline shift. No intracranial masses or hemorrhage. Morgan-white matter interface is norm al. Skull and face: Calvarium and visualized facial bones are intact, without suspicious lesions. Sinuses: Visualized sinuses and mastoids are clear. IMPRESSION: No acute intracranial pathology. Findings were discussed with providers nurse at time of dictation. Reviewed by: Ant Marvin on 02/05/2023 1:30 PM PDT Approved by: Ant Marvin on 02/05/2023 1:30 PM PDT Station ID: [id number]
== END 2023-02-05 12:47 | disposition home or self-care (01) ==
LOC: DI 12:46
PROVIDERS: ATTEND Physician Assistant
DX: S09.90XA Unspecified injury of head, initial encounter (principal); Z79.01 Long term (current) use of anticoagulants; H40.059 Ocular hypertension, unspecified eye

== ENCOUNTER 2023-02-22 10:06 | Inpatient (IN) | payer MEDICARE, BC ==
[2023-02-22 13:05] LABS: BASOPHILS # (AUTO) 0.1 10^3/uL (0.0-0.1); BASOPHILS % (AUTO) 1.3 %; EOSINOPHILS % (AUTO) 0.4 %; HCT - HEMATOCRIT 40.3 % (37.0-47.0); LYMPHOCYTES # (AUTO) 0.6 10^3/uL (1.5-3.5); LYMPHOCYTES % (AUTO) 7.4 %; MEAN CORPUSCULAR HEMOGLOBIN 34.9 pg (27.0-31.0); MEAN CORPUSCULAR HGB CONC 32.3 g/dL (32.0-36.0); MEAN CORPUSCULAR VOLUME 108.3 fL (81.0-99.0); MEAN PLATELET VOLUME 9.2 fL (7.9-10.8); MONOCYTES # (AUTO) 0.3 10^3/uL (0.0-1.0); MONOCYTES % (AUTO) 4.1 %; NEUTROPHILS # (AUTO) 6.8 10^3/uL (1.5-6.6); NEUTROPHILS % (AUTO) 85.3 %; NRBC ABSOLUTE COUNT (AUTO) 0.03 x10^3/uL; NUCLEATED RED BLOOD CELLS AUTO 0.4 /100WBC; PLT - PLATELET COUNT 275 10^3/uL (130-450); RED BLOOD COUNT 3.72 10^6/uL (4.20-5.40); RED CELL DISTRIBUTION WIDTH 17.8 % (12.0-15.0)
[2023-02-22] MEDS ORDERED: LIDOCAINE PATCH 5% TOP STA (13:06)
[2023-02-22 13:28] LABS: ALBUMIN/GLOBULIN RATIO 1.2 (1.0-2.2); BILIRUBIN,TOTAL 2.3 mg/dL (0.2-1.0); CREATININE 0.7 mg/dL (0.6-1.3); POTASSIUM 3.6 mmol/L (3.5-4.5); TOTAL PROTEIN 7.4 g/dL (6.4-8.9)
[2023-02-22] MEDS ORDERED: MORPHINE 2 MG/ML CARPUJECT IVP STA ×2 (13:52→17:26)
[2023-02-22] MEDS ORDERED: ONDANSETRON 4 MG/2 ML VIAL IVP STA (13:52)
--- NOTE | 2023-02-22 13:58 | ED Physician Documentation ---
History of Present Illness - Stated complaint Stated Complaint: FEMALE - Chief complaint Chief Complaint: General - History obtained from History obtained from: Patient, Family - Additonal information Additional information: Patient is an 87-year-old presenting for evaluation of back pain, difficulty with urinating as well as recently being unsteady. Per the daughter at the bedside patient had a fall earlier this month and was sedentary for some time recovering from that fall. Recently she has been doing exercise classes at her correction. She has been reporting lower back pain for the last several days. They were unable to get into the PCP. They then went to the walk-in clinic but the line was too long so thus decided to come to the emergency department. Patient was able to urinate okay this morning but has not been able to hear. She did note this morning she had a little bit of dysuria with urination. Denies any blood in her urine or stools. She has ongoing lower extremity edema and is on Lasix for this. Per the daughter she is on a low-salt diet but does drink a lot of fluids and does not adhere to her fluid restrictions. She is on Eliquis. Review of Systems Constitutional: denies: Fever Cardiac: denies: Chest pain / pressure Respiratory: denies: Dyspnea GI: reports: Abdominal Pain. denies: Constipation, Bloody / black stool : reports: Unable to Void Musculoskeletal: reports: Back pain, Extremity swelling Neurologic: reports: Generalized weakness. 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 HEENT: Cataracts - Present Medications Home Medications: Ambulatory Orders Medication Instructions Recorded Confirmed Ascorbic Acid [Vitamin C] 1,000 mg PO DAILY 08/09/13 02/21/21 Tonny Cit/D3/K/Mag Ox/Stron/Bor 1 each PO DAILY 08/09/13 02/21/21 [Prosteon Tablet] Levothyroxine Sodium [Synthroid] 25 mcg PO DAILY 08/09/13 02/21/21 Methotrexate [Methotrexate Sodium] 2.5 mg PO DAILY 08/09/13 02/21/21 Metoprolol Succinate [Toprol Xl] 50 mg PO DAILY 08/09/13 02/21/21 Multivit with Calcium,Iron,Min 1 each PO DAILY 08/09/13 02/21/21 [Essential Daily] Pravastatin Sodium [Pravachol] 20 mg PO HS 08/09/13 02/21/21 lisinopriL [Zestril] 40 mg PO DAILY 08/09/13 02/21/21 Folic Acid 2 mg PO DAILY 08/14/13 02/21/21 Hydroxychloroquine [Plaquenil] 200 mg PO DAILY 08/14/13 02/21/21 Apixaban [Eliquis] 2.5 mg PO DAILY 02/22/23 02/22/23 Furosemide [Lasix] 20 mg PO ONCE 02/22/23 02/22/23 predniSONE [Prednisone] 2.5 mg PO DAILY 02/22/23 02/22/23 - Allergies Allergies/Adverse Reactions: Allergies Allergy/AdvReac Type Severity Reaction Status Date / Time Sulfa (Sulfonamide Allergy Mild Unknown Verified 02/21/21 14:03 Antibiotics) - Social History Does the pt smoke?: No Smoking Status: Never smoker Does the pt drink ETOH?: No Does the pt have substance abuse?: No PD ED PE NORMAL - General General: Alert and oriented X 3, Other (Elderly, frail-appearing) - HEENT HEENT: Atraumatic, Pharynx benign - Neck Neck: Supple, no meningeal sign - Cardiac Cardiac: RRR, No murmur - Respiratory Respiratory: No respiratory distress, Clear bilaterally - Abdomen Abdomen: Normal bowel sounds, Soft, Other (Mild lower abdominal tenderness to palpation) - Back Back: Other (Mild midline low lumbar tenderness to palpation) - Extremities Extremities: Other (Pitting edema to bilateral lower extremities) - Neuro Neuro: Alert and oriented X 3, No motor deficit, Normal speech Results - Vitals Vitals: Vital Signs - 24 hr 02/22/23 02/22/23 02/22/23 10:27 10:30 16:00 Temperature 36.4 C L 36.5 C Heart Rate 60 60 93 Respiratory 20 20 28 H Rate Blood Pressure 149/103 H 149/103 H 134/93 H O2 Saturation 97 97 93 Oxygen O2 Source Room air - Labs Labs: Laboratory Tests 02/22/23 02/22/23 02/22/23 12:35 12:55 12:55 WBC 8.0 RBC 3.72 L Hgb 13.0 Hct 40.3 MCV 108.3 H MCH 34.9 H MCHC 32.3 RDW 17.8 H Plt Count 275 MPV 9.2 Neut # (Auto) 6.8 H Lymph # (Auto) 0.6 L Glynn # (Auto) 0.3 Eos # (Auto) 0.0 Baso # (Auto) 0.1 Absolute Nucleated RBC 0.03 Nucleated RBC % 0.4 Sodium 124 L Potassium 3.6 Chloride 93 L Carbon Dioxide 21 Anion Gap 10.0 BUN 18 Creatinine 0.7 Estimated GFR (MDRD) 79 L Glucose 88 Calcium 9.0 Total Bilirubin 2.3 H AST 36 ALT 18 Alkaline Phosphatase 144 H B-Natriuretic Peptide 530 H Total Protein 7.4 Albumin 4.0 Globulin 3.4 Albumin/Globulin Ratio 1.2 Lipase 46 Urine Color Urine Clarity Urine pH Ur Specific [place] Urine Protein Urine Glucose (UA) Urine Ketones Urine Occult Blood Urine Nitrite Urine Bilirubin Urine Urobilinogen Ur Leukocyte Esterase Urine RBC Urine WBC Ur Squamous Epith Cells Amorphous Sediment Urine Bacteria Urine Casts Ur Microscopic Review Urine Culture Comments 02/22/23 15:05 WBC RBC Hgb Hct MCV MCH MCHC RDW Plt Count MPV Neut # (Auto) Lymph # (Auto) Glynn # (Auto) Eos # (Auto) Baso # (Auto) Absolute Nucleated RBC Nucleated RBC % Sodium Potassium Chloride Carbon Dioxide Anion Gap BUN Creatinine Estimated GFR (MDRD) Glucose Calcium Total Bilirubin AST ALT Alkaline Phosphatase B-Natriuretic Peptide Total Protein Albumin Globulin Albumin/Globulin Ratio Lipase Urine Color YELLOW Urine Clarity CLEAR Urine pH 5.0 Ur Specific [place] >=1.030 H Urine Protein 30 H Urine Glucose (UA) NEGATIVE Urine Ketones TRACE Urine Occult Blood MODERATE H Urine Nitrite NEGATIVE Urine Bilirubin NEGATIVE Urine Urobilinogen 1 (NORMAL) Ur Leukocyte Esterase NEGATIVE Urine RBC 0-5 Urine WBC 0-3 Ur Squamous Epith Cells NONE SEEN Amorphous Sediment Rare Urine Bacteria None Seen Urine Casts 0-2 Hyaline Casts Ur Microscopic Review INDICATED Urine Culture Comments NOT INDICATED PD Medical Decision Making - ED course Complexity details: reviewed results, re-evaluated patient, d/w patient, d/w family ED course: Patient is a 87-year-old female presenting for evaluation of back pain, having difficulty with urination, leg swelling and feeling weak. Patient was unable to urinate here. Bladder scan only shows 43 mL of urine in the bladder. She does have tenderness to the abdomen and to the back. CBC, chemistries were obtained and reviewed with significant findings including a new hyponatremia of 124. Payton darby additionally has pain and tenderness to the back and abdomen. Therefore a CT scan was ordered. CT scan is pending at shift change will be signed out to oncoming provider. If no findings on the CT scan patient still requires admission to the hospital for correction of her sodium as this appears to be new for her. Patient does report adhering to a low-salt diet but also drinking a lot of fluid throughout the day. Departure - Departure Disposition: 66 [facility] DC/Xfer Clinical Impression: Hyponatremia, Leg swelling Back pain Qualifiers: Back pain location: low back pain Chronicity: acute Back pain laterality: unspecified Sciatica presence: unspecified whether sciatica present Qualified Code(s): M54.50 - Low back pain, unspecified Condition: Stable Forms: PCP List
[2023-02-22 15:22] LABS: BILIRUBIN,URINE NEGATIVE (NEGATIVE); GLUCOSE, URINE (UA) NEGATIVE (NEGATIVE); KETONES,URINE (UA) TRACE mg/dL (NEGATIVE); LEUKOCYTE ESTERASE, URINE NEGATIVE (NEGATIVE); NITRITE,URINE NEGATIVE (NEGATIVE); OCCULT BLOOD,URINE MODERATE (NEGATIVE); PROTEIN,URINE 30 mg/dL (NEGATIVE); UROBILINOGEN,URINE 1 (NORMAL) E.U./dL (NORMAL)
[2023-02-22 15:31] LABS: CLARITY,URINE CLEAR (CLEAR)
[2023-02-22 15:33] LABS: AMORPHOUS SEDIMENT,UR Rare /LPF; BACTERIA,URINE None Seen /HPF (None Seen); CASTS, URINE 0-2 Hyaline Casts /LPF; RBC,URINE 0-5 /HPF (0-5); SQUAMOUS EPITHELIAL CELL,UR NONE SEEN (<= Few); WBC,URINE 0-3 /HPF (0-5)
--- NOTE | 2023-02-22 16:57 | CT Report ---
PROCEDURE: ABDOMEN/PELVIS W INDICATIONS: abd/back pain CONTRAST: 100mL [id number] TECHNIQUE: After the administration of contrast, 5 mm thick sections acquired from the diaphragms to the symphys is. 5 mm thick coronal and sagittal reformats were acquired. For radiation dose reduction, the foll owing was used: automated exposure control, adjustment of mA and/or kV according to patient size. COMPARISON: FINDINGS: Image quality: Motion is present limiting areas of fine detail evaluation. Lung bases and heart: Heart is markedly enlarged. Mild right effusion. Scattered linear opacities Liver: Steatosis and overall heterogeneous attenuation is present. Several low-attenuation foci are p resent the largest measuring 2.5 cm. Gallbladder and biliary tree: Spleen: No splenomegaly. Pancreas: No pancreatic ductal dilation. Adrenals: No adrenal nodule. Kidneys and ureters: No hydronephrosis. No renal cystic lesion which requires follow up. No solid mas s. Bowel and peritoneum: No bowel distension. No pathologic free fluid. Lymph nodes: No central or retroperitoneal adenopathy. Vessels: No infrarenal aortic aneurysm. A descending thoracic aorta measures 4 cm. PELVIS Reproductive organs: Unremarkable. Bladder: No abnormal wall thickening, accounting for underdistension. Pelvic lymph nodes: No pelvic adenopathy by size criteria. Bones: No aggressive osseous abnormality. Other: No significant ventral or inguinal hernia. IMPRESSION: Markedly enlarged heart. Heterogeneous appearance of the liver possibly relating to steatosis. However, motion is also present and other entities such as infiltrative disease cannot be definitively excluded. Further evaluation is recommended with hepatic ultrasound on a nonemergent basis. Low-attenuation foci within the liver the largest most suggestive of simple cyst. The smaller foci ar e too small to definitively characterize and could represent smaller cysts versus hemangiomas. Reviewed by: Lilia Munson MD on 02/22/2023 4:55 PM PDT Approved by: Lilia Munson MD on 02/22/2023 4:55 PM PDT Station ID: [id number]
--- NOTE | 2023-02-22 17:30 | ED Physician Documentation ---
ED Addendum - Addendum Addendum: 02/22/23 17:29 No acute findings on CT scan. I reevaluated the patient, she has no midline tenderness on the back or over the sacrum/coccyx. She thinks she has been taking her Lasix but is unsure. She does live alone. She has hyponatremia, apparently likes to drink water. She did have a fall earlier in the month, but had a negative head CT about 2 weeks ago. No falls since then. She has significant edema to the bilateral lower extremities as well. Discussed the case with Dr. Chaney, hospitalist who accepts. This document was made in part using voice recognition software. While efforts are made to proofread this document, sound alike and grammatical errors may occur. Departure - Departure Disposition: 66 [facility] DC/Xfer Clinical Impression: Hyponatremia, Leg swelling Back pain Qualifiers: Back pain location: low back pain Chronicity: acute Back pain laterality: unspecified Sciatica presence: unspecified whether sciatica present Qualified Code(s): M54.50 - Low back pain, unspecified Condition: Stable Forms: PCP List
[2023-02-22] MEDS ORDERED: ONDANSETRON 4 MG/2 ML VIAL IVP PRN (17:57)
[2023-02-22] MEDS ORDERED: oxyCODONE 5 MG TABLET PO PRN (17:57)
[2023-02-22] MEDS ORDERED: SODIUM CHLORIDE FLUSH 0.9% 10 ML SYRINGE IVP PRN (17:57)
--- NOTE | 2023-02-22 18:11 | HISTORY & PHYSICAL EXAMINATION ---
Chief Complaint - Chief Complaint Chief Complaint: back pain,increased water retention History of Present Illness - Admitted From Admitted From:: ER - History Obtained From Records Reviewed: yes History obtained from: patient,daughter - History of Present Illness HPI Comment/Other: 87 yo female who presents with back pain x 2months, increasing swelling of legs. Denies increased SOA. Pt denies F/C. Pt did have a fall in December and is having intermittent residual back pain. Labs significant for Na124. She does report a lot of water drinking and is on lasix 20 mg daily. Old records not available for review. Patient denies chest pain.CT abd/pelvis: heart markedly enlarged. Mild R pleural effusion.Heterogenous appearance of liver possible steatosis.Pt has hx of a fib and is on Eliquis. 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 HEENT: reports: Cataracts Meds/Allgy - Home Medications Home Medications: Ambulatory Orders Medication Instructions Recorded Confirmed Ascorbic Acid [Vitamin C] 1,000 mg PO DAILY 08/09/13 02/21/21 Tonny Cit/D3/K/Mag Ox/Stron/Bor 1 each PO DAILY 08/09/13 02/21/21 [Prosteon Tablet] Levothyroxine Sodium [Synthroid] 25 mcg PO DAILY 08/09/13 02/21/21 Methotrexate [Methotrexate Sodium] 2.5 mg PO DAILY 08/09/13 02/21/21 Metoprolol Succinate [Toprol Xl] 50 mg PO DAILY 08/09/13 02/21/21 Multivit with Calcium,Iron,Min 1 each PO DAILY 08/09/13 02/21/21 [Essential Daily] Pravastatin Sodium [Pravachol] 20 mg PO HS 08/09/13 02/21/21 lisinopriL [Zestril] 40 mg PO DAILY 08/09/13 02/21/21 Folic Acid 2 mg PO DAILY 08/14/13 02/21/21 Hydroxychloroquine [Plaquenil] 200 mg PO DAILY 08/14/13 02/21/21 Apixaban [Eliquis] 2.5 mg PO DAILY 02/22/23 02/22/23 Furosemide [Lasix] 20 mg PO ONCE 02/22/23 02/22/23 predniSONE [Prednisone] 2.5 mg PO DAILY 02/22/23 02/22/23 - Allergies Allergies/Adverse Reactions: Allergies Allergy/AdvReac Type Severity Reaction Status Date / Time Sulfa (Sulfonamide Allergy Mild Unknown Verified 02/21/21 14:03 Antibiotics) Review of Systems - Other Findings Other Findings: all systems reviewed and are negative except as noted in HPI. Pt does have hx of rheumatoid arthritis. She resdes at [facility] in [place]. Exam - Vital Signs Vital Signs: Vital Signs x48h Temp Pulse Resp BP Pulse Ox 02/22/23 16:00 93 28 H 134/93 H 93 02/22/23 10:30 36.5 C 60 20 149/103 H 97 02/22/23 10:27 36.4 C L 60 20 149/103 H 97 - Physical Exam General Appearance: positive: Alert, Mild distress Eyes Bilateral: positive: Normal inspection Neck: positive: Nml inspection Respiratory: positive: No respiratory distress, Breath sounds nml Cardiovascular: positive: Regular rate & rhythm, No murmur Abdomen: positive: Non-tender, No distention Skin: positive: No rash Extremities: positive: Other (2-3 + LE edema) Neurologic/Psychiatric: positive: Oriented x3, Mood/affect nml Conclusion/Plan - Problem List (1) Hyponatremia Conclusion/Plan: Secondary to CHF,fluid overload.Free H2O Fluid restrict to 2 l.Increase lasix to 40 mg iv bid. Monitor I/Os,daily weights.Pt has no mental status alterations. (2) Rheumatoid arthritis Conclusion/Plan: Continue home meds once med rec done by pharmacy/nursing. (3) Back pain Conclusion/Plan: CT does not reveal fracture. PT ordered to mobilize. Qualifiers: Back pain location: low back pain Chronicity: acute Back pain laterality: unspecified Sciatica presence: unspecified whether sciatica present Qualified Code(s): M54.50 - Low back pain, unspecified (4) Leg swelling Conclusion/Plan: Secondary to cardiac valvular disease as evidenced by ct findings. Diuresis initiated. Echocardiogram ordered. - Lab Results Lab results reviewed: Yes Fish Bones: 02/22/23 12:55 02/22/23 12:55
[2023-02-22] MEDS ORDERED: iohexoL-300 100 ML VIAL IVP ONE (19:25)
[2023-02-22 19:43] LABS: POTASSIUM 3.9 mmol/L (3.5-4.5)
[2023-02-22] MEDS: FUROSEMIDE 40 MG/4 ML VIAL IVP SCH (21:03)
[2023-02-22] MEDS: MORPHINE 2 MG/ML CARPUJECT IVP PRN (21:51)
[2023-02-23] MEDS: MORPHINE 2 MG/ML CARPUJECT IVP PRN (00:55)
[2023-02-23] MEDS: SODIUM CHLORIDE FLUSH 0.9% 10 ML SYRINGE IVP SCH ×3 (00:56→20:42)
[2023-02-23 05:45] LABS: BASOPHILS # (AUTO) 0.1 10^3/uL (0.0-0.1); BASOPHILS % (AUTO) 1.1 %; EOSINOPHILS % (AUTO) 0.2 %; HCT - HEMATOCRIT 38.4 % (37.0-47.0); HGB - HEMOGLOBIN 12.8 g/dL (12.0-16.0); LYMPHOCYTES # (AUTO) 0.4 10^3/uL (1.5-3.5); LYMPHOCYTES % (AUTO) 6.4 %; MEAN CORPUSCULAR HEMOGLOBIN 35.6 pg (27.0-31.0); MEAN CORPUSCULAR HGB CONC 33.3 g/dL (32.0-36.0); MEAN CORPUSCULAR VOLUME 106.7 fL (81.0-99.0); MEAN PLATELET VOLUME 9.1 fL (7.9-10.8); MONOCYTES # (AUTO) 0.4 10^3/uL (0.0-1.0); MONOCYTES % (AUTO) 5.6 %; NEUTROPHILS # (AUTO) 5.5 10^3/uL (1.5-6.6); NEUTROPHILS % (AUTO) 85.6 %; NRBC ABSOLUTE COUNT (AUTO) 0.05 x10^3/uL; NUCLEATED RED BLOOD CELLS AUTO 0.8 /100WBC; PLT - PLATELET COUNT 229 10^3/uL (130-450); RED CELL DISTRIBUTION WIDTH 18.2 % (12.0-15.0); WHITE BLOOD COUNT 6.4 x10^3/uL (4.8-10.8)
[2023-02-23 05:53] LABS: CALCIUM 8.3 mg/dL (8.5-10.3); CREATININE 0.8 mg/dL (0.6-1.3); POTASSIUM 4.6 mmol/L (3.5-4.5)
[2023-02-23] MEDS: APIXABAN 2.5 MG TABLET PO SCH (08:00)
[2023-02-23] MEDS: ACETAMINOPHEN 325 MG TABLET PO PRN ×2 (08:00→16:42)
[2023-02-23] MEDS: FUROSEMIDE 40 MG/4 ML VIAL IVP SCH ×2 (08:01→20:42)
--- NOTE | 2023-02-23 11:37 | PHARMACY PROGRESS NOTE ---
- Best Possible Medication History Admit Date and Time: 02/22/23 3881 Processed by: Pharmacy Medication History completed: Yes Patient Interview: Completed Secondary Source(s): Pharmacy records As the person ultimately responsible for medication therapy, providers are able to order a medication from an existing home medication list in [facility] via the "Reconcile Routine" prior to Confirmation of that medication by residential direct support professional. Such practice is discouraged except when the physician, in their clinical judgment, deems that a medical need exists for a medication without regard to previous use.
--- NOTE | 2023-02-23 14:14 | PROVIDER PROGRESS NOTE ---
Subjective - Prog Note Date Prog Note Date: 02/23/23 Prog Note Time: 14:12 - Subjective Pt reports feeling: Improved Subjective: She states that she feels more alert. But really weak. Just trying to sit up, and then transition to standing with walking 2 steps to the chair beside her bed makes her anxious, short of breath. But she is able to follow cues well. Current Medications - Current Medications Current Medications: Active Medications Acetaminophen (Acetaminophen 325 Mg Tablet) 650 mg PO Q4HR PRN PRN Reason: Pain 1 to 4, or Fever Last Admin: 02/23/23 08:00 Dose: 650 mg Apixaban (Apixaban 2.5 Mg Tablet) 2.5 mg PO DAILY [facility] Last Admin: 02/23/23 08:00 Dose: 2.5 mg Furosemide (Furosemide 40 Mg/4 Ml Vial) 40 mg IVP BID [facility] Last Admin: 02/23/23 08:01 Dose: 40 mg Morphine Sulfate (Morphine 2 Mg/Ml Carpuject) 2 mg IVP Q2HR PRN PRN Reason: Pain 8 to 10 Last Admin: 02/23/23 00:55 Dose: 2 mg Ondansetron HCl (Ondansetron 4 Mg/2 Ml Vial) 4 mg IVP Q6HR PRN PRN Reason: Nausea / Vomiting Last Admin: 02/23/23 05:50 Dose: 4 mg Oxycodone HCl (Oxycodone 5 Mg Tablet) 10 mg PO Q4HR PRN PRN Reason: Pain 8 to 10 Last Admin: 02/22/23 20:08 Dose: 10 mg Sodium Chloride (Sodium Chloride Flush 0.9% 10 Ml Syringe) 10 ml IVP PRN PRN PRN Reason: NEEDED PER PROVIDER ORDERS Sodium Chloride (Sodium Chloride Flush 0.9% 10 Ml Syringe) 10 ml IVP 0100,0900,1700 [facility] Last Admin: 02/23/23 08:01 Dose: 10 ml Ascorbic Acid [Vitamin C] 1,000 mg PO DAILY 08/09/13 Levothyroxine Sodium [Synthroid] 25 - 50 mcg PO DAILY 08/09/13 Methotrexate [Methotrexate Sodium] 10 mg PO FR 08/09/13 Multivit with Calcium,Iron,Min [Essential Daily] 1 each PO DAILY 08/09/13 Pravastatin Sodium [Pravachol] 20 mg PO HS 08/09/13 Folic Acid 2 mg PO DAILY 08/14/13 Hydroxychloroquine [Plaquenil] 200 mg PO DAILY 08/14/13 Apixaban [Eliquis] 2.5 mg PO DAILY 02/22/23 Furosemide [Lasix] 20 mg PO DAILY 02/22/23 predniSONE [Prednisone] 2.5 mg PO DAILY 02/22/23 Acetaminophen/Diphenhydramine [[facility] Acetaminophen Pm Caplet] 2 tab PO HS 02/23/23 Calcium Carbonate [Tums (Calcium Carbonate 500mg)] 2 tab PO DAILY 02/23/23 Lisinopril [Zestril] 1 tab PO DAILY 02/23/23 Melatonin 1 tab PO HS 02/23/23 Metoprolol Succinate [Toprol Xl] 1 tab PO DAILY 02/23/23 Objective - Vital Signs/Intake & Output Reviewed Vital Signs: Yes Vital Signs: Vital Signs x48h Temp Pulse Pulse Resp BP BP Pulse Ox 02/23/23 13:16 36.5 C 99 22 143/87 H 95 02/23/23 08:20 116 H 165/89 H 02/23/23 07:45 36.6 C 95 24 140/84 H 96 Intake & Output: Intake & Output 02/20/23 02/21/23 02/22/23 02/23/23 23:59 23:59 23:59 23:59 Intake Total 120 320 Output Total 450 555 Balance -330 -235 - Objective General Appearance: positive: Alert, Other (Tiny, short statured elderly female 5 foot tall, 38.5 kg) Eyes Bilateral: positive: PERRL, EOMI ENT: positive: No signs of dehydration Neck: positive: No JVD. negative: Stiff neck Respiratory: positive: Other (Gets tachypneic and starts panting with exertion of standing and walking 2 steps. But recovers quickly when sits down). negative: Wheezes, Rales, Rhonchi Cardiovascular: positive: Regular rate & rhythm, Systolic murmur Abdomen: positive: Non-tender, No organomegaly, Nml bowel sounds, No distention Skin: positive: No rash, Warm, Dry Extremities: positive: No pedal edema Neurologic/Psychiatric: positive: Oriented x3, Motor nml (But needs a lap belt, standby assist due to decreased strength). negative: CN's nml (2-12) (Deafness) - Lab Results Fish Bones: 08/01/23 05:09 02/23/23 10:08 Other Labs: Lab Results x24hrs 02/23/23 02/23/23 02/23/23 Range/Units 10:08 10:08 05:09 WBC (4.8-10.8) x10^3/uL RBC (4.20-5.40) 10^6/uL Hgb (12.0-16.0) g/dL Hct (37.0-47.0) % MCV (81.0-99.0) fL MCH (27.0-31.0) pg MCHC (32.0-36.0) g/dL RDW (12.0-15.0) % Plt Count (130-450) 10^3/uL MPV (7.9-10.8) fL Neut # (Auto) (1.5-6.6) 10^3/uL Lymph # (Auto) (1.5-3.5) 10^3/uL Independence # (Auto) (0.0-1.0) 10^3/uL Eos # (Auto) (0.0-0.7) 10^3/uL Baso # (Auto) (0.0-0.1) 10^3/uL Absolute Nucleated RBC x10^3/uL Nucleated RBC % /100WBC Sodium 124 L 124 L (135-145) mmol/L Potassium 4.0 4.6 H (3.5-4.5) mmol/L Chloride 93 L 93 L (101-111) mmol/L Carbon Dioxide 21 24 (21-32) mmol/L Anion Gap 10.0 7.0 (6-13) BUN 22 H (6-20) mg/dL Creatinine 0.8 (0.6-1.3) mg/dL Estimated GFR (MDRD) 68 L (>89) Glucose 77 (74-104) mg/dL Calcium 8.3 L (8.5-10.3) mg/dL Troponin I High Sens 273.1 H* (2.3-14.8) ng/L B-Natriuretic Peptide (5-100) pg/mL Urine Color Urine Clarity (CLEAR) Urine pH (5.0-7.5) PH Ur Specific Simpson (1.002-1.030) Urine Protein (NEGATIVE) mg/dL Urine Glucose (UA) (NEGATIVE) mg/dL Urine Ketones (NEGATIVE) mg/dL Urine Occult Blood (NEGATIVE) Urine Nitrite (NEGATIVE) Urine Bilirubin (NEGATIVE) Urine Urobilinogen (NORMAL) E.U./dL Ur Leukocyte Esterase (NEGATIVE) Urine RBC (0-5) /HPF Urine WBC (0-5) /HPF Ur Squamous Epith Cells (<= Few) Amorphous Sediment /LPF Urine Bacteria (None Seen) /HPF Urine Casts /LPF Ur Microscopic Review Urine Culture Comments 02/23/23 02/23/23 02/23/23 Range/Units 05:09 01:44 01:44 WBC 6.4 (4.8-10.8) x10^3/uL RBC 3.60 L (4.20-5.40) 10^6/uL Hgb 12.8 (12.0-16.0) g/dL Hct 38.4 (37.0-47.0) % MCV 106.7 H (81.0-99.0) fL MCH 35.6 H (27.0-31.0) pg MCHC 33.3 (32.0-36.0) g/dL RDW 18.2 H (12.0-15.0) % Plt Count 229 (130-450) 10^3/uL MPV 9.1 (7.9-10.8) fL Neut # (Auto) 5.5 (1.5-6.6) 10^3/uL Lymph # (Auto) 0.4 L (1.5-3.5) 10^3/uL Independence # (Auto) 0.4 (0.0-1.0) 10^3/uL Eos # (Auto) 0.0 (0.0-0.7) 10^3/uL Baso # (Auto) 0.1 (0.0-0.1) 10^3/uL Absolute Nucleated RBC 0.05 x10^3/uL Nucleated RBC % 0.8 /100WBC Sodium 124 L (135-145) mmol/L Potassium 4.0 (3.5-4.5) mmol/L Chloride 93 L (101-111) mmol/L Carbon Dioxide 21 (21-32) mmol/L Anion Gap 10.0 (6-13) BUN (6-20) mg/dL Creatinine (0.6-1.3) mg/dL Estimated GFR (MDRD) (>89) Glucose (74-104) mg/dL Calcium (8.5-10.3) mg/dL Troponin I High Sens 142.3 H* (2.3-14.8) ng/L B-Natriuretic Peptide (5-100) pg/mL Urine Color Urine Clarity (CLEAR) Urine pH (5.0-7.5) PH Ur Specific Simpson (1.002-1.030) Urine Protein (NEGATIVE) mg/dL Urine Glucose (UA) (NEGATIVE) mg/dL Urine Ketones (NEGATIVE) mg/dL Urine Occult Blood (NEGATIVE) Urine Nitrite (NEGATIVE) Urine Bilirubin (NEGATIVE) Urine Urobilinogen (NORMAL) E.U./dL Ur Leukocyte Esterase (NEGATIVE) Urine RBC (0-5) /HPF Urine WBC (0-5) /HPF Ur Squamous Epith Cells (<= Few) Amorphous Sediment /LPF Urine Bacteria (None Seen) /HPF Urine Casts /LPF Ur Microscopic Review Urine Culture Comments 02/22/23 02/22/23 02/22/23 Range/Units 19:16 19:16 15:05 WBC (4.8-10.8) x10^3/uL RBC (4.20-5.40) 10^6/uL Hgb (12.0-16.0) g/dL Hct (37.0-47.0) % MCV (81.0-99.0) fL MCH (27.0-31.0) pg MCHC (32.0-36.0) g/dL RDW (12.0-15.0) % Plt Count (130-450) 10^3/uL MPV (7.9-10.8) fL Neut # (Auto) (1.5-6.6) 10^3/uL Lymph # (Auto) (1.5-3.5) 10^3/uL Independence # (Auto) (0.0-1.0) 10^3/uL Eos # (Auto) (0.0-0.7) 10^3/uL Baso # (Auto) (0.0-0.1) 10^3/uL Absolute Nucleated RBC x10^3/uL Nucleated RBC % /100WBC Sodium 123 L (135-145) mmol/L Potassium 3.9 (3.5-4.5) mmol/L Chloride 92 L (101-111) mmol/L Carbon Dioxide 23 (21-32) mmol/L Anion Gap 8.0 (6-13) BUN (6-20) mg/dL Creatinine (0.6-1.3) mg/dL Estimated GFR (MDRD) (>89) Glucose (74-104) mg/dL Calcium (8.5-10.3) mg/dL Troponin I High Sens 47.5 H* (2.3-14.8) ng/L B-Natriuretic Peptide (5-100) pg/mL Urine Color YELLOW Urine Clarity CLEAR (CLEAR) Urine pH 5.0 (5.0-7.5) PH Ur Specific Simpson >=1.030 H (1.002-1.030) Urine Protein 30 H (NEGATIVE) mg/dL Urine Glucose (UA) NEGATIVE (NEGATIVE) mg/dL Urine Ketones TRACE (NEGATIVE) mg/dL Urine Occult Blood MODERATE H (NEGATIVE) Urine Nitrite NEGATIVE (NEGATIVE) Urine Bilirubin NEGATIVE (NEGATIVE) Urine Urobilinogen 1 (NORMAL) (NORMAL) E.U./dL Ur Leukocyte Esterase NEGATIVE (NEGATIVE) Urine RBC 0-5 (0-5) /HPF Urine WBC 0-3 (0-5) /HPF Ur Squamous Epith Cells NONE SEEN (<= Few) Amorphous Sediment Rare /LPF Urine Bacteria None Seen (None Seen) /HPF Urine Casts 0-2 Hyaline Casts /LPF Ur Microscopic Review INDICATED Urine Culture Comments NOT INDICATED 02/22/23 Range/Units 12:35 WBC (4.8-10.8) x10^3/uL RBC (4.20-5.40) 10^6/uL Hgb (12.0-16.0) g/dL Hct (37.0-47.0) % MCV (81.0-99.0) fL MCH (27.0-31.0) pg MCHC (32.0-36.0) g/dL RDW (12.0-15.0) % Plt Count (130-450) 10^3/uL MPV (7.9-10.8) fL Neut # (Auto) (1.5-6.6) 10^3/uL Lymph # (Auto) (1.5-3.5) 10^3/uL Independence # (Auto) (0.0-1.0) 10^3/uL Eos # (Auto) (0.0-0.7) 10^3/uL Baso # (Auto) (0.0-0.1) 10^3/uL Absolute Nucleated RBC x10^3/uL Nucleated RBC % /100WBC Sodium (135-145) mmol/L Potassium (3.5-4.5) mmol/L Chloride (101-111) mmol/L Carbon Dioxide (21-32) mmol/L Anion Gap (6-13) BUN (6-20) mg/dL Creatinine (0.6-1.3) mg/dL Estimated GFR (MDRD) (>89) Glucose (74-104) mg/dL Calcium (8.5-10.3) mg/dL Troponin I High Sens (2.3-14.8) ng/L B-Natriuretic Peptide 530 H (5-100) pg/mL Urine Color Urine Clarity (CLEAR) Urine pH (5.0-7.5) PH Ur Specific Simpson (1.002-1.030) Urine Protein (NEGATIVE) mg/dL Urine Glucose (UA) (NEGATIVE) mg/dL Urine Ketones (NEGATIVE) mg/dL Urine Occult Blood (NEGATIVE) Urine Nitrite (NEGATIVE) Urine Bilirubin (NEGATIVE) Urine Urobilinogen (NORMAL) E.U./dL Ur Leukocyte Esterase (NEGATIVE) Urine RBC (0-5) /HPF Urine WBC (0-5) /HPF Ur Squamous Epith Cells (<= Few) Amorphous Sediment /LPF Urine Bacteria (None Seen) /HPF Urine Casts /LPF Ur Microscopic Review Urine Culture Comments ABX Reporting Has patient been on IV antibiotics over the past 48 hours?: Yes Assessment/Plan - Problem List (1) Hyponatremia Impression: Conclusion/Plan: Secondary to CHF,fluid overload. She does not have a history of congestive heart failure on her past medical history. But she is on an JOSE inhibitor, beta- conor, and diuretic. She is on free H2O Fluid restrict to 2 l. Her mental status appears to be quite good. She is easily prompted. Understands commands and conversations. Sodium has not improved much with the fluid restriction of 2 L/day. She was admitted at 124 sodium, and today it still remains at 124. Lasix 40 mg IV twice daily. BUN on admission was 18. With the Lasix that she went to 22 today. Creatinine was 0.7 on admission and is 0.8 today. As such, I feel that she is having a negative intake output status and BUN and creatinine are not elevated enough for me to stop IV Lasix at this time. Echocardiogram ordered to evaluate for CHF (2) Rheumatoid arthritis Conclusion/Plan: Continue home meds once med rec done by pharmacy/nursing. This morning, at care conference, her methotrexate is listed as daily. I am seeing macrocytosis to 106 with that. I am asking pharmacy to make sure that it is not daily but only weekly. She is on folic acid 2 mg daily at home. I will make sure that is resumed while here. (3) Back pain Conclusion/Plan: CT does not reveal fracture. At home she does use a quad cane.PT ordered to mobilize.They find her to be weak, decreased mobility from baseline, and requiring a contact-guard assist to be able to transfer and ambulate. My plan is to continue PT and OT while she is here. Qualifiers: Back pain location: low back pain Chronicity: acute Back pain laterality: unspecified Sciatica presence: unspecified whether sciatica present Qualified Code(s): M54.50 - Low back pain, unspecified (4) Leg swelling Conclusion/Plan: Secondary to cardiac valvular disease as evidenced by ct findings. Diuresis initiated. Echocardiogram ordered. (5) Hypertension Home medications include lisinopril, metoprolol, and Lasix. She is already on intravenous Lasix. I will resume lisinopril and metoprolol
[2023-02-23] MEDS ORDERED: PRAVASTATIN 10 MG TABLET PO SCH (21:00)
[2023-02-24] MEDS: SODIUM CHLORIDE FLUSH 0.9% 10 ML SYRINGE IVP SCH ×3 (00:33→19:43)
[2023-02-24] MEDS: ACETAMINOPHEN 325 MG TABLET PO PRN (00:58)
[2023-02-24 05:35] LABS: BASOPHILS # (AUTO) 0.1 10^3/uL (0.0-0.1); BASOPHILS % (AUTO) 1.2 %; EOSINOPHILS % (AUTO) 0.7 %; HCT - HEMATOCRIT 33.9 % (37.0-47.0); HGB - HEMOGLOBIN 11.8 g/dL (12.0-16.0); LYMPHOCYTES # (AUTO) 0.4 10^3/uL (1.5-3.5); LYMPHOCYTES % (AUTO) 10.5 %; MEAN CORPUSCULAR HEMOGLOBIN 35.9 pg (27.0-31.0); MEAN CORPUSCULAR HGB CONC 34.8 g/dL (32.0-36.0); MONOCYTES # (AUTO) 0.3 10^3/uL (0.0-1.0); MONOCYTES % (AUTO) 7.4 %; NEUTROPHILS # (AUTO) 3.4 10^3/uL (1.5-6.6); NEUTROPHILS % (AUTO) 79.5 %; NRBC ABSOLUTE COUNT (AUTO) 0.07 x10^3/uL; NUCLEATED RED BLOOD CELLS AUTO 1.7 /100WBC; PLT - PLATELET COUNT 204 10^3/uL (130-450); RED BLOOD COUNT 3.29 10^6/uL (4.20-5.40); WHITE BLOOD COUNT 4.2 x10^3/uL (4.8-10.8)
[2023-02-24 05:45] LABS: CALCIUM 7.2 mg/dL (8.5-10.3); CREATININE 0.8 mg/dL (0.6-1.3); POTASSIUM 3.4 mmol/L (3.5-4.5)
[2023-02-24] MEDS: MULTIVITAMIN W/MINERALS TABLET PO SCH (07:58)
[2023-02-24] MEDS: predniSONE 5 MG TABLET PO SCH (07:58)
[2023-02-24] MEDS: FUROSEMIDE 40 MG/4 ML VIAL IVP SCH ×2 (09:36→20:59)
[2023-02-24] MEDS: CALCIUM CARBONATE CHEW 500 MG TABLET PO SCH (09:36)
[2023-02-24] MEDS: APIXABAN 2.5 MG TABLET PO SCH (09:37)
[2023-02-24] MEDS: ASCORBIC ACID 500 MG TABLET PO SCH (09:37)
[2023-02-24] MEDS: FOLIC ACID 1 MG TABLET PO SCH (09:37)
[2023-02-24] MEDS: HYDROXYCHLOROQUINE 200 MG TABLET PO SCH (09:37)
[2023-02-24] MEDS: METOPROLOL SUCCINATE 50 MG TABLET PO SCH (09:37)
[2023-02-24] MEDS: lisinopriL 20 MG TABLET PO SCH (09:37)
[2023-02-24] MEDS: LEVOTHYROXINE 25 MCG TABLET PO SCH (09:37)
[2023-02-24] MEDS ORDERED: POTASSIUM CHLORIDE 20 MEQ TABLET PO ONE (14:01)
--- NOTE | 2023-02-24 14:09 | PROVIDER PROGRESS NOTE ---
Subjective - Prog Note Date Prog Note Date: 02/24/23 Prog Note Time: 14:07 - Subjective Pt reports feeling: Improved Subjective: She continues to be weak, short of breath with exertion. Thinks that she feels better from yesterday to today. Is confused and puzzled by why she is so weak. She feels like "everything was all fine" and "now this". She was hungry this morning and was able to eat 100% of her breakfast. She denies chest pain. She feels like her legs are getting smaller than what they were in size on admission. She hurts all over. She reminds me that "I broke my back" a couple of months ago. Her back pain was the entire reason she came to the emergency room. She was also complaining of "jellylike" urine. The pain had gotten so bad in her back she could not walk anymore. Tylenol was not helping.She was evaluated for her back pain in the ER and the CT scan had no acute findings. She was found to be hyponatremic, and she was admitted on the basis of hyponatremia, leg edema.She has been receiving Lasix 40 mg IV push twice daily. Current Medications - Current Medications Current Medications: Active Medications Acetaminophen (Acetaminophen 325 Mg Tablet) 650 mg PO Q4HR PRN PRN Reason: Pain 1 to 4, or Fever Last Admin: 02/24/23 00:58 Dose: 650 mg Apixaban (Apixaban 2.5 Mg Tablet) 2.5 mg PO DAILY [facility] Last Admin: 02/24/23 09:37 Dose: 2.5 mg Ascorbic Acid (Ascorbic Acid 500 Mg Tablet) 1,000 mg PO DAILY [facility] Last Admin: 02/24/23 09:37 Dose: 1,000 mg Calcium Carbonate/Glycine (Calcium Carbonate Chew 500 Mg Tablet) 1,000 mg PO DAILY [facility] Last Admin: 02/24/23 09:36 Dose: 1,000 mg Folic Acid (Folic Acid 1 Mg Tablet) 2 mg PO DAILY [facility] Last Admin: 02/24/23 09:37 Dose: 2 mg Furosemide (Furosemide 40 Mg/4 Ml Vial) 40 mg IVP BID [facility] Last Admin: 02/24/23 09:36 Dose: 40 mg Hydroxychloroquine Sulfate (Hydroxychloroquine 200 Mg Tablet) 200 mg PO DAILY [facility] Last Admin: 08/02/23 09:37 Dose: 200 mg Levothyroxine Sodium (Levothyroxine 25 Mcg Tablet) 25 - 50 mcg PO DAILY [facility] Last Admin: 02/24/23 09:37 Dose: 25 mcg Lisinopril (Lisinopril 20 Mg Tablet) 40 mg PO DAILY [facility] Last Admin: 02/24/23 09:37 Dose: 40 mg Metoprolol Succinate (Metoprolol Succinate 50 Mg Tablet) 50 mg PO DAILY [facility] Last Admin: 02/24/23 09:37 Dose: 50 mg Morphine Sulfate (Morphine 2 Mg/Ml Carpuject) 2 mg IVP Q2HR PRN PRN Reason: Pain 8 to 10 Last Admin: 02/23/23 00:55 Dose: 2 mg Multivitamins/Minerals (Multivitamin W/Minerals Tablet) 1 tab PO DAILYWM [facility] Last Admin: 02/24/23 07:58 Dose: 1 tab Ondansetron HCl (Ondansetron 4 Mg/2 Ml Vial) 4 mg IVP Q6HR PRN PRN Reason: Nausea / Vomiting Last Admin: 02/23/23 05:50 Dose: 4 mg Oxycodone HCl (Oxycodone 5 Mg Tablet) 10 mg PO Q4HR PRN PRN Reason: Pain 8 to 10 Last Admin: 02/22/23 20:08 Dose: 10 mg Pravastatin Sodium (Pravastatin 40 Mg Tablet) 40 mg PO QPM [facility] Prednisone (Prednisone 5 Mg Tablet) 2.5 mg PO DAILYWM [facility] Last Admin: 02/24/23 07:58 Dose: 2.5 mg Sodium Chloride (Sodium Chloride Flush 0.9% 10 Ml Syringe) 10 ml IVP PRN PRN PRN Reason: NEEDED PER PROVIDER ORDERS Sodium Chloride (Sodium Chloride Flush 0.9% 10 Ml Syringe) 10 ml IVP 0100,0900,1700 [facility] Last Admin: 02/24/23 09:37 Dose: 10 ml Ascorbic Acid [Vitamin C] 1,000 mg PO DAILY 08/09/13 Levothyroxine Sodium [Synthroid] 25 - 50 mcg PO DAILY 08/09/13 Methotrexate [Methotrexate Sodium] 10 mg PO FR 08/09/13 Multivit with Calcium,Iron,Min [Essential Daily] 1 each PO DAILY 08/09/13 Pravastatin Sodium [Pravachol] 20 mg PO HS 08/09/13 Folic Acid 2 mg PO DAILY 08/14/13 Hydroxychloroquine [Plaquenil] 200 mg PO DAILY 08/14/13 Apixaban [Eliquis] 2.5 mg PO DAILY 02/22/23 Furosemide [Lasix] 20 mg PO DAILY 02/22/23 predniSONE [Prednisone] 2.5 mg PO DAILY 02/22/23 Acetaminophen/Diphenhydramine [[facility] Acetaminophen Pm Caplet] 2 tab PO HS 02/23/23 Calcium Carbonate [Tums (Calcium Carbonate 500mg)] 2 tab PO DAILY 02/23/23 Lisinopril [Zestril] 1 tab PO DAILY 02/23/23 Melatonin 1 tab PO HS 02/23/23 Metoprolol Succinate [Toprol Xl] 1 tab PO DAILY 02/23/23 Objective - Vital Signs/Intake & Output Reviewed Vital Signs: Yes Vital Signs: Vital Signs x48h Temp Pulse Resp BP Pulse Ox 02/24/23 12:52 36.3 C L 99 24 130/87 H 94 02/24/23 07:20 36.3 C L 102 H 22 132/75 H 95 Intake & Output: Intake & Output 02/21/23 02/22/23 02/23/23 02/24/23 23:59 23:59 23:59 23:59 Intake Total 120 870 445 Output Total 450 1530 2100 Balance -330 -894 -0715 - Objective General Appearance: positive: Alert, Mild distress (Due to back pain.), Other (Short statured, frail appearing elderly female who is quite cheerful, alert in spite of her pain and discomfort) Eyes Bilateral: positive: PERRL, EOMI ENT: positive: No signs of dehydration Neck: positive: No JVD. negative: Stiff neck Respiratory: positive: No respiratory distress, Other (This is at baseline, sitting in her bed. Yesterday I saw her get tachypneic with exertion.). negati ve: Wheezes, Rales, Rhonchi Cardiovascular: positive: Irregularly irregular, Systolic murmur Abdomen: positive: Non-tender, No organomegaly, Nml bowel sounds Skin: positive: Warm, Dry Extremities: positive: Full ROM, Pedal edema (Was present yesterday. Today there is none. But her calves and ankles are thicker than normal.) Neurologic/Psychiatric: positive: Oriented x3, Motor nml (No focal loss of strength but very minimal choreoathetotic head movement). negative: CN's nml (2-12) (Slight deafness), Slurred/abnml speech, Depressed mood/affect - Lab Results Fish Bones: 02/24/23 05:06 02/24/23 05:06 Other Labs: Lab Results x24hrs 02/24/23 02/24/23 02/24/23 Range/Units 05:06 05:06 05:06 WBC 4.2 L (4.8-10.8) x10^3/uL RBC 3.29 L (4.20-5.40) 10^6/uL Hgb 11.8 L (12.0-16.0) g/dL Hct 33.9 L (37.0-47.0) % MCV 103.0 H (81.0-99.0) fL MCH 35.9 H (27.0-31.0) pg MCHC 34.8 (32.0-36.0) g/dL RDW 18.0 H (12.0-15.0) % Plt Count 204 (130-450) 10^3/uL MPV 9.0 (7.9-10.8) fL Neut # (Auto) 3.4 (1.5-6.6) 10^3/uL Lymph # (Auto) 0.4 L (1.5-3.5) 10^3/uL [place]ides # (Auto) 0.3 (0.0-1.0) 10^3/uL Eos # (Auto) 0.0 (0.0-0.7) 10^3/uL Baso # (Auto) 0.1 (0.0-0.1) 10^3/uL Absolute Nucleated RBC 0.07 x10^3/uL Nucleated RBC % 1.7 /100WBC Sodium 126 L (135-145) mmol/L Potassium 3.4 L (3.5-4.5) mmol/L Chloride 95 L (101-111) mmol/L Carbon Dioxide 24 (21-32) mmol/L Anion Gap 7.0 (6-13) BUN 23 H (6-20) mg/dL Creatinine 0.8 (0.6-1.3) mg/dL Estimated GFR (MDRD) 68 L (>89) Glucose 89 (74-104) mg/dL Calcium 7.2 L (8.5-10.3) mg/dL Troponin I High Sens 152.6 H* (2.3-14.8) ng/L 02/23/23 Range/Units 16:06 WBC (4.8-10.8) x10^3/uL RBC (4.20-5.40) 10^6/uL Hgb (12.0-16.0) g/dL Hct (37.0-47.0) % MCV (81.0-99.0) fL MCH (27.0-31.0) pg MCHC (32.0-36.0) g/dL RDW (12.0-15.0) % Plt Count (130-450) 10^3/uL MPV (7.9-10.8) fL Neut # (Auto) (1.5-6.6) 10^3/uL Lymph # (Auto) (1.5-3.5) 10^3/uL [place]ides # (Auto) (0.0-1.0) 10^3/uL Eos # (Auto) (0.0-0.7) 10^3/uL Baso # (Auto) (0.0-0.1) 10^3/uL Absolute Nucleated RBC x10^3/uL Nucleated RBC % /100WBC Sodium (135-145) mmol/L Potassium (3.5-4.5) mmol/L Chloride (101-111) mmol/L Carbon Dioxide (21-32) mmol/L Anion Gap (6-13) BUN (6-20) mg/dL Creatinine (0.6-1.3) mg/dL Estimated GFR (MDRD) (>89) Glucose (74-104) mg/dL Calcium (8.5-10.3) mg/dL Troponin I High Sens 231.4 H* (2.3-14.8) ng/L - Diagnostic Imaging Diagnostic Imaging Results: positive: Final report reviewed Diagnostic Imaging Comments: Echocardiogram was done. No previous echo to compare to. The left ventricle is normal in size and ejection fraction is 65 to 70%. However she has mild to moderate right ventricular enlargement. Systolic function on the right side is normal. The septal wall is flattened in diastole and systole which is consistent with right ventricular volume and pressure overload. Severe increase in the left atrial volume index. Severe right atrial enlargement. Moderate to severe secondary mitral regurgitation. Moderate to severe tricuspid regurgitation. Abnormal right heart pressures with RVSP at rest 55 mmHg. The aortic valve has no significant disease. She has some moderate mitral annular calcification. The tricuspid valve is thickened. The inferior vena cava is dilated at greater than 2.1 cm with less than 50% collapse suggesting RAP of at least 15 mmHg. Her flow patterns measured by Doppler indicates systolic flow reversal suggestive of severe mitral regurg. ABX Reporting Has patient been on IV antibiotics over the past 48 hours?: No Assessment/Plan - Problem List (1) Acute cor pulmonale Impression: In a patient has chronic atrial fibrillation as well as severe mitral regurgitation with backup pressures going through the lungs and into the right heart. Before admission she was already on a beta-conor, JOSE inhibitor, and diuretic. When she fell in February 2021, she tripped over a garden hose on her porch. She does have history of osteoporosis but was on calcium, vitamin D, and previous history of Prolia and Fosamax. The ER doctor was worried about a C- spine fracture so she was transferred to [facility] not only for the fracture but a new onset of atrial fibrillation. She had C4-5 anterolisthesis and a T3 compression fracture but no need for surgery. She was started on metoprolol, and apixaban 2.5 twice daily and her lisinopril was adjusted. It was mentioned during her stay at [facility] that her troponins did peak but they were thought to be by increased demand with no ischemic changes on EKG and no chest pain. Transthoracic echo showed severe mitral regurgitation and some tricuspid regurgitation with a very enlarged left atrium. She was to follow-up with cardiology in [place]. The precise mechanism of her mitral regurgitation was difficult to discern since the leaflets appeared normal. There was severe calcification. She was seen in follow-up, the severe mitral regurg was noted. But there was no referral to [place] clinic. I believe, by inferring the note, that she was just to be medically managed. Her weight was 96.8 lbs in August 2019. 86.2 lbs by February 2021 when she fell. In April 2022 she was 88.4. And on February 05, in the PCP office, she was 89.38 lbs. With her admission, she is currently 99 lbs. So between February 05 and admission, she has gained about 10 pounds. Most likely water weight. Here, with this admission, her echo shows increase in RVSP pressures indicating subtle increase in heart failure measurements. She continues to have severe mitral and tricuspid regurgitation, and left and right atrial enlargement. And enlarging right ventricle. But ejection fraction is staying normal on the right side. The overall heart failure is most likely due to severe mitral regurg of unknown cause. Plan: I would like to sit down with her and her daughter/son-in-law to discuss advance care planning Continue to focus on diuresis And I will watch her fluid balance, weigh her daily to make sure we are achieving success (2) Elevated troponin Impression: Most likely acute on chronic cor pulmonale. I do not know why she has decompe nsated. A rise in her troponins indicates a possible NSTEMI. The rise was initially attributed to congestive heart failure with demand ischemia. Her initial troponin was 47. The third troponin was 273. The fourth troponin 231 24 hours later, and this morning she is 152. This morning's EKG has atrial fibrillation (which is unchanged) with A PVC. She has inferolateral ST depression that is subtly increased in comparison to the February 21 EKG. But they were essentially the same findings. In July, she had normal sinus rhythm. And the same inferolateral ST changes. The troponin rise is in a patient who is anticoagulated with Eliquis, on the beta-conor, on an JOSE inhibitor. So risk factor management is already ongoing.The other possible cause of decompensation of right-sided heart failure would be noncompliance with diet and meds. But her family has stated that they go over every day and she is compliant. Her admission history indicates a worsening of chronic pedal edema. It is not new pedal edema. In putting it altogether the argument could be made that she has demand ischemia from acute on chronic cor pulmonale versus NSTEMI. She has no chest pain. Already on maximal medical therapy prior to admission. I do not think I am going to start her on a heparin drip. However, echo shows enough right ventricular strain and dysfunction that I will check venous Dopplers. I think there is a low probability of a DVT because she is on Eliquis. She also has not had a chest x-ray and I will check a chest x- ray. (3) Hyponatremia Impression: She has been hyponatremic in the past. In our EMR, in 2013 she varied between 125 and as high as 134. She was then normal again until 2017 where she was 132. She was normal in 2019, 2020. Her next sodium is 124 on February 22 with this visit. In reviewing her sodiums in her PCP office, they have always been normal. As such I think her hyponatremia may be due to congestive heart failure and fluid retention. She is not on a serotonin reuptake inhibitor. Plan: Monitor sodium daily Continue diuresis for congestive heart failure (4) Back pain Impression: The patient herself tells me that she has had back pain ever since she fell and had that T3 fracture. It just became worse over the last few days and that is what brought her in. So to make it clear to her, I told her that she came because of back pain but we are treating her not because of back pain but because of congestive heart failure and low sodium. She seems to understand. The fracture was over a year ago. For pain management she is nothing stronger than acetaminophen at home. I cannot give her nonsteroidals because of her use of Eliquis. Plan: Tylenol 500 on a fixed schedule of every 6 hours for 3 days then changed to as needed Add oxycodone 2.5 mg twice a day. I really hesitate to give her anything stronger because of her age, and low body mass Qualifiers: Back pain location: low back pain Chronicity: chronic Back pain laterality: midline Sciatica presence: without sciatica Qualified Code(s): M54.50 - Low back pain, unspecified; G89.29 - Other chronic pain
[2023-02-24] MEDS ORDERED: POTASSIUM CHLORIDE 10 MEQ CAPSULE PO ONE (14:10)
--- NOTE | 2023-02-24 14:33 | XRAY Report ---
PROCEDURE: Chest 1 View X-Ray INDICATIONS: short of breath and RV failure TECHNIQUE: One view of the chest was acquired. COMPARISON: Chest x-ray 02/22/2023 FINDINGS: Surgical changes and devices: None. Lungs and pleura: No pleural effusions or pneumothorax. Interstitial prominence is less pronounced than prior. Lungs are clear. Mediastinum: Mediastinal contours appear normal. Heart size is enlarged. Bones and chest wall: No suspicious bony lesions. Overlying soft tissues appear unremarkable. IMPRESSION: 1.Cardiomegaly and interstitial prominence, may represent mild edema, improved compared to prior. 2.Previous right midlung opacity is not well seen on current exam. Further evaluation with CT is shanell mmended. Reviewed by: Ashvin Ojeda MD on 02/24/2023 2:31 PM PDT Approved by: Ashvin Ojeda MD on 02/24/2023 2:31 PM PDT Station ID: [id number]
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
[2023-02-24] MEDS ORDERED: PRAVASTATIN 40 MG TABLET PO SCH (21:00)
[2023-02-24] MEDS: oxyCODONE 5 MG TABLET PO SCH (21:00)
[2023-02-25] MEDS: SODIUM CHLORIDE FLUSH 0.9% 10 ML SYRINGE IVP SCH ×2 (01:10→09:11)
[2023-02-25 05:23] LABS: BASOPHILS # (AUTO) 0.1 10^3/uL (0.0-0.1); EOSINOPHILS % (AUTO) 0.8 %; HCT - HEMATOCRIT 35.6 % (37.0-47.0); HGB - HEMOGLOBIN 11.9 g/dL (12.0-16.0); LYMPHOCYTES # (AUTO) 0.4 10^3/uL (1.5-3.5); LYMPHOCYTES % (AUTO) 7.8 %; MEAN CORPUSCULAR HEMOGLOBIN 35.1 pg (27.0-31.0); MEAN CORPUSCULAR HGB CONC 33.4 g/dL (32.0-36.0); MEAN PLATELET VOLUME 8.7 fL (7.9-10.8); MONOCYTES # (AUTO) 0.4 10^3/uL (0.0-1.0); MONOCYTES % (AUTO) 6.7 %; NEUTROPHILS # (AUTO) 4.4 10^3/uL (1.5-6.6); NEUTROPHILS % (AUTO) 83.1 %; NRBC ABSOLUTE COUNT (AUTO) 0.06 x10^3/uL; NUCLEATED RED BLOOD CELLS AUTO 1.1 /100WBC; PLT - PLATELET COUNT 212 10^3/uL (130-450); RED BLOOD COUNT 3.39 10^6/uL (4.20-5.40); WHITE BLOOD COUNT 5.3 x10^3/uL (4.8-10.8)
[2023-02-25 05:46] LABS: CALCIUM 7.4 mg/dL (8.5-10.3); CREATININE 0.7 mg/dL (0.6-1.3); POTASSIUM 3.6 mmol/L (3.5-4.5)
[2023-02-25] MEDS: CALCIUM CARBONATE CHEW 500 MG TABLET PO SCH (09:07)
[2023-02-25] MEDS: oxyCODONE 5 MG TABLET PO SCH (09:08)
[2023-02-25] MEDS: lisinopriL 20 MG TABLET PO SCH (09:08)
[2023-02-25] MEDS: ASCORBIC ACID 500 MG TABLET PO SCH (09:10)
[2023-02-25] MEDS: HYDROXYCHLOROQUINE 200 MG TABLET PO SCH (09:10)
[2023-02-25] MEDS: METOPROLOL SUCCINATE 50 MG TABLET PO SCH (09:10)
[2023-02-25] MEDS: LEVOTHYROXINE 25 MCG TABLET PO SCH (09:10)
[2023-02-25] MEDS: predniSONE 5 MG TABLET PO SCH (09:10)
[2023-02-25] MEDS: FOLIC ACID 1 MG TABLET PO SCH (09:10)
[2023-02-25] MEDS: MULTIVITAMIN W/MINERALS TABLET PO SCH (09:11)
[2023-02-25] MEDS: FUROSEMIDE 40 MG/4 ML VIAL IVP SCH (09:11)
[2023-02-25] MEDS: APIXABAN 2.5 MG TABLET PO SCH (09:11)
--- NOTE | 2023-02-25 11:21 | Discharge Plan ---
"Discharge Plan for SNF / [facility] - Discharge Plan And Transition Orders Problem Reviewed?: Yes Disposition: SNF DC/Xfer Condition: Stable Allergies and Adverse Reactions: Allergies Allergy/AdvReac Type Severity Reaction Status Date / Time Sulfa (Sulfonamide Allergy Mild Unknown Verified 02/21/21 14:03 Antibiotics) Health Concerns: 87-year-old female who has long-term history of right-sided heart failure due to severe mitral stenosis and tricuspid regurgitation that presents with increasing shortness of breath, pedal edema, and hyponatremia. Current echocardiogram shows her to have an ejection fraction on the left side of 65 to 70%. She has moderate right ventricular enlargement but systolic function is still normal. She has significant right volume overload and pressure overload on that echo. Both atria are quite big with severe mitral and tricuspid regurgitation. She has abnormal right heart pressures with an RVSP at 55 mmHg. Treatment consisted of diuresis with intravenous Lasix. She is improved but significantly deconditioned and fatigued with minimal activity. Physical therapy and Occupational Therapy evaluation and treatment were done. They feel that she would benefit from short-term physical and Occupational Therapy rehab. Plan of Treatment: She will be continued on her diuretic therapy. She was on Lasix 20 mg a day and we are discharging her on 40 mg daily. Please weigh this patient daily and adjust medications as needed since the main treatment for this right-sided heart failure will be diuresis. Check her BMP and BNP on March 04. Please have her see her primary care provider in follow-up in the next 2 weeks From rehab at her custodial facility she is to return to home. She is on the waiting list for an assisted living facility and anticipates moving into the assisted living facility 3 months later. I have spoken to her family about the progression of her valvular heart disease. When her functional status is deteriorated enough on a permanent basis, she would be a candidate for hospice. At that point in time criteria for hospice would be dyspnea, angina at rest or with minimal activity. And [place] Heart Association class IV. Critical valvular heart disease or advanced inoperable coronary artery disease. According to her daughter the patient is not a candidate for valvular intervention per cardiology consultation. If she starts to have frequent ER visits and/or hospitalizations. If she has serious arrhythmia, syncope, cardiac arrest or an ejection fraction less than 20%. Care Goals: Patient would like to return to home after rehab. From home she plans on going to assisted living facility. Assessment: This patient is alert, oriented, still self determining. Her main problem is anxiety centering around communication with her son. Her daughter and son-in-law are the DPOA's and her strongest applicants. - SNF / [facility] Transition Orders Admit to (Facility): [facility] Under the care of (Name): Dr. Tucker Ken Discharge Diagnosis: 1. Acute on chronic right-sided heart failure secondary to severe valvular heart disease 2. Elevated troponins due to demand ischemia 3. Hyponatremia 4. Chronic back pain 5. History of vertebral compression fracture 6. Hypertension 7. Hypothyroidism 8. Hyperlipidemia 9. Rheumatoid arthritis 10. Macrocytosis Medicare Certification Statement: I certify that [facility] is medically necessary on a continuing basis for any of the conditions for which she/he is receiving care during hospitalization. Notify PCP of admission and forward orders to primary provider for signature. Weight on admission and: Daily Call PCP immediately if weight increases by: 2 kg (dry weight not established yet) Other Notification Orders: Call PCP immediately if patient develops dyspnea, chest pain/tightness or edema. House Bowel Program: Yes Additional Bowel Program Orders: If no BM after 2 days, nurse may give M.O.M. 30ml PO PRN and/or ducolax Supp 1 [place] and/or DIMPLE 250mg P.O., and/or senna 1-2 tabs PO. On day 3 nurse may give repeat above order until residents constipation is resolved. Annual Influenza Vaccine (between Mar 26 and October 23): Yes Two-step PPD per [facility] [id number] or approved exception documents: Yes Lab Tests or X-ray Orders: BNP and BMP weekly starting 03/04 Medication Orders: PLEASE REFER TO THE DISCHARGE MEDICATION LIST. Insulin Orders?: No - Diet Type: No added salt Texture: Regular Liquids: Thin May have monthly special meal: Yes - Therapies | Activity Therapy: Evaluation | Treat if indicated: PT, OT Rehabilitation Potential: Return to independent living Activity: Activity as Tolerated Weight Bearing: Full Weight Assistance Devices: Walker Follow Up: Dr. Mathis in the next 2 weeks."
--- NOTE | 2023-02-25 11:40 | DISCHARGE SUMMARY ---
"Discharge Summary Admit Date: 02/22/23 Discharge Date: 02/25/23 Discharging Provider: Jessica Villanueva MD Primary Care Provider: Tucker Mathis MD Code Status: Do Not Attempt Resuscitation Condition at Discharge: Stable Discharge Disposition: [facility] DC/Xfer - DIAGNOSES Discharge Diagnoses with Status of Each Condition: 1. Acute on chronic right-sided heart failure secondary to severe valvular heart disease 2. Elevated troponins due to demand ischemia 3. Hyponatremia 4. Chronic back pain 5. History of vertebral compression fracture 6. Hypertension 7. Hypothyroidism 8. Hyperlipidemia 9. Rheumatoid arthritis 10. Macrocytosis - HPI History of Present Illness: 87 yo female who presents with back pain x 2months, increasing swelling of legs. Denies increased SOA. Pt denies F/C. Pt did have a fall in December and is having intermittent residual back pain. Labs significant for Na124. She does report a lot of water drinking and is on lasix 20 mg daily. Old records not available for review. Patient denies chest pain.CT abd/pelvis: heart markedly enlarged. Mild R pleural effusion.Heterogenous appearance of liver possible steatosis.Pt has hx of a fib and is on Eliquis. - Past Medical History Cardiovascular: reports: Hypertension, High cholesterol Respiratory: reports: None Endocrine/Autoimmune: reports: HyPOthyroidism GI: reports: None : reports: None HEENT: reports: Chronic sinusitis, Other Psych: reports: None Musculoskeletal: reports: Rheumatoid arthritis, Osteoporosis Derm: reports: None MRSA Hx?: No - Past Surgical History General: reports: Colonoscopy /NURSE WOUND: reports: section, Hysterectomy HEENT: reports: Cataracts - CONSULTS | PROCEDURES Procedures: Abdomen/pelvis CT with markedly enlarged heart, heterogeneous appearance of the liver possibly relating to steatosis. I feel that this is most likely passive liver congestion from right-sided heart failure. Further evaluation would be recommended with hepatic ultrasound on a nonemergent basis. Low-attenuation foci within the liver most suggestive of a simple cyst. Chest x-ray with cardiomegaly and interstitial prominence representing probable mild edema when compared to prior chest x-rays. A previous right midlung opacity is not well seen on current exam. Consider further evaluation with a CT of the chest. Echocardiogram has left ventricular wall thickness normal and an ejection fraction of 65 to 70%. Mild to moderate right ventricular enlargement and the right ventricular systolic function is normal. The septal wall is flattened in diastole and systole consistent with right ventricular volume and pressure over load. Both atria are severely enlarged. She has severe mitral and tricuspid regurgitation with abnormal right heart pressures, RVSP 55 mmHg. - HOSPITAL COURSE Hospital Course: (1) Acute cor pulmonale Impression: In a patient has chronic atrial fibrillation as well as severe mitral regurgitation with backup pressures going through the lungs and into the right heart. Before admission she was already on a beta-conor, JOSE inhibitor, and diuretic. When she fell in February 2021, she tripped over a garden hose on her porch. She does have history of osteoporosis but was on calcium, vitamin D, and previous history of Prolia and Fosamax. The ER doctor was worried about a C- spine fracture so she was transferred to [facility] not only for the fracture but a new onset of atrial fibrillation. She had C4-5 anterolisthesis and a T3 compression fracture but no need for surgery. She was started on metoprolol, and apixaban 2.5 twice daily and her lisinopril was adjusted. It was mentioned during her stay at [facility] that her troponins did peak but they were thought to be by increased demand with no ischemic changes on EKG and no chest pain. Transthoracic echo showed severe mitral regurgitation and some tricuspid regurgitation with a very enlarged left atrium. She was to follow-up with cardiology in [place]. The precise mechanism of her mitral regurgitation was difficult to discern since the leaflets appeared normal. There was severe calcification. She was seen in follow-up, the severe mitral regurg was noted. But there was no referral to [place] clinic. I believe, by inferring the note, that she was just to be medically managed. Her weight was 96.8 lbs in August 2019. 86.2 lbs by February 2021 when she fell. In April 2022 she was 88.4. And on February 05, in the PCP office, she was 89.38 lbs. With her admission, she is currently 99 lbs. So between February 05 and admission, she has gained about 10 pounds. Most likely water weight. Here, with this admission, her echo shows increase in RVSP pressures indicating subtle increase in heart failure measurements. She continues to have severe mitral and tricuspid regurgitation, and left and right atrial enlargement. And enlarging right ventricle. But ejection fraction is staying normal on the right side. The overall heart failure is most likely due to severe mitral regurg of unknown cause. Treatment consisted of IV Lasix at 40 mg daily. Resuming her other medications. She is still significantly fatigued and dyspneic with simple exertion but she is improved. When she came in she could not even get out of bed. Physical therapy and Occupational Therapy feel that she would benefit from rehab at a long-term facility and she is transferred to [facility]. From there the plan is for her to go home with her sister and son-in-law helping take care of her. But they have her on a waiting list for [facility] [place] [facility]. In discussing the case with the family and doing advance care planning, the patient is a DO NOT RESUSCITATE. She has already been evaluated by cardiology and is not a candidate for any surgical intervention of her valvular heart disease. As such when she progresses to meet criteria for hospice, they will probably transition her to hospice at the assisted living facility. (2) Elevated troponin Impression: Most likely acute on chronic cor pulmonale. I do not know why she has decompensated. A rise in her troponins indicates a possible NSTEMI. The rise was initially attributed to congestive heart failure with demand ischemia. Her initial troponin was 47. The third troponin was 273. The fourth troponin 231 24 hours later, and this morning she is 152. This morning's EKG has atrial fibrillation (which is unchanged) with A PVC. She has inferolateral ST depression that is subtly increased in comparison to the February 21 EKG. But they were essentially the same findings. In July, she had normal sinus rhythm. And the same inferolateral ST changes. The troponin rise is in a patient who is anticoagulated with Eliquis, on the beta-conor, on an JOSE inhibitor. So risk factor management is already ongoing.The other possible cause of decompensation of right-sided heart failure would be noncompliance with diet and meds. But her family has stated that they go over every day and she is compliant. Her admission history indicates a worsening of chronic pedal edema. It is not new pedal edema. In putting it altogether the argument could be made that she has demand ischemia from acute on chronic cor pulmonale versus NSTEMI. She has no chest pain. Already on maximal medical therapy prior to admission. Other than resuming her usual medications, there were no changes for this issue. (3) Hyponatremia Impression: She has been hyponatremic in the past. In our EMR, in 2013 she varied between 125 and as high as 134. She was then normal again until 2017 where she was 132. She was normal in 2019, 2020. Her next sodium is 124 on February 22 with this visit. In reviewing her sodiums in her PCP office, they have always been normal. As such I think her hyponatremia may be due to congestive heart failure and fluid retention. She is not on a serotonin reuptake inhibitor.Sodium at discharge was 131. On admission she was 124. (4) Back pain Impression: The patient herself tells me that she has had back pain ever since she fell and had that T3 fracture. It just became worse over the last few days and that is what brought her in. So to make it clear to her, I told her that she came because of back pain but we are treating her not because of back pain but because of congestive heart failure and low sodium. She seems to understand. The fracture was over a year ago. For pain management she is nothing stronger than acetaminophen at home. I cannot give her nonsteroidals because of her use of Eliquis.I did add oxyc odone 2.5 mg to see if that would help. I was giving it to her 2.5 mg twice a day. At discharge I will not be resuming that but it is a consideration for the long-term facility. At discharge she was 5 foot tall. 43.5 kg. Temperature 36.6. Heart rate 94. Blood pressure 114/76. Respirations 20. 96% on room air. Her fluid balance was negative every day that she was here. She was diuresed 3720 cc during the course of her stay. She never required oxygen. She was standing at the sink, brushing her teeth and her hair without any assist. Neck was supple. Lungs had diminished breath sounds at the bases,. She had an irregular rate and rhythm with a systolic ejection murmur as well as diastolic murmur. She can get tachypneic and easily fatigued with minimal exertion such as walking 10 feet. Abdomen was soft, nontender, normal bowel sounds. Even though her CT scan showed probable hepatic engorgement, I did not feel a liver edge. Last bowel movement was February 24. She had a Corona catheter in because of urinary incontinence. She already has mild incontinence but my aggressive diuresis made this worse. I am discontinuing the Corona at discharge. Extremities have much l ess edema than on admission. But there is still trace edema chronically enlarged ankles and calves. Slight redness of the calves from chronic venous stasis. But no skin breakdown. She is oriented to person, place, time and situation. She can be forgetful and can be anxious. Greater than 30 minutes was spent coordinating discharge, speaking to her son and [id number], and going over her medications. As well as going over future plans. This document was made in part using voice recognition software. While efforts are made to proofread this document, sound alike and grammatical errors may occur. - ALLERGIES Allergies/Adverse Reactions: Allergies Allergy/AdvReac Type Severity Reaction Status Date / Time Sulfa (Sulfonamide Allergy Mild Unknown Verified 02/21/21 14:03 Antibiotics) - MEDICATIONS Home Medications: Ambulatory Orders Medication Instructions Recorded Confirmed Ascorbic Acid [Vitamin C] 1,000 mg PO DAILY 08/09/13 02/23/23 Multivit with Calcium,Iron,Min 1 each PO DAILY 08/09/13 02/23/23 [Essential Daily] Pravastatin Sodium [Pravachol] 20 mg PO HS 08/09/13 02/23/23 Acetaminophen [Tylenol] 650 mg PO Q4HR PRN tab 02/25/23 Acetaminophen/Diphenhydramine [Cvs 2 tab PO HS #0 02/25/23 02/23/23 Acetaminophen Pm Caplet] Apixaban [Eliquis] 2.5 mg PO DAILY #0 02/25/23 02/22/23 Calcium Carbonate [Tums (Calcium 2 tab PO DAILY #0 02/25/23 02/23/23 Carbonate 500mg)] Folic Acid 2 mg PO DAILY #0 02/25/23 02/23/23 Furosemide [Lasix] 40 mg PO DAILY #0 tab 02/25/23 02/23/23 Hydroxychloroquine [Plaquenil] 200 mg PO DAILY #0 02/25/23 02/23/23 Levothyroxine Sodium [Synthroid] 25 mcg PO DAILY #0 02/25/23 02/23/23 Lisinopril [Zestril] 1 tab PO DAILY #0 02/25/23 02/23/23 Melatonin 1 tab PO HS #0 02/25/23 02/23/23 Methotrexate [Methotrexate Sodium] 10 mg PO FR #0 tab 02/25/23 02/23/23 Metoprolol Succinate [Toprol Xl] 1 tab PO DAILY #0 tab 02/25/23 02/23/23 predniSONE [Prednisone] 2.5 mg PO DAILY #0 tab 02/25/23 02/22/23 - LABS Result Diagrams: 02/25/23 05:12 02/25/23 05:12"
--- NOTE | 2023-02-25 12:23 | Ultrasound Report ---
PROCEDURE: Duplex Ext Veins Bilateral INDICATIONS: Marquis Hernandez MD TECHNIQUE: Real-time imaging, as well as color and pulse Doppler interrogation, were performed of the deep veins of both legs from the inguinal ligament to the popliteal fossa. COMPARISON: None FINDINGS: The deep veins are normally compressible, and free of intraluminal thrombus. Color and pu lse Doppler demonstrate normal phasic intravascular flow. There is normal augmentation response to d istal compression maneuver. IMPRESSION: Negative bilateral duplex lower extremity venous ultrasound for DVT. Reviewed by: Giacomo Levi MD on 02/25/2023 12:22 PM PDT Approved by: Giacomo Levi MD on 02/25/2023 12:22 PM PDT Station ID: [id number]
[2023-02-25 12:49] VITALS: BP 140/90
--- NOTE | 2023-03-01 12:41 | XRAY Report ---
PROCEDURE: Chest 2 View X-Ray INDICATIONS: edema TECHNIQUE: 2 views of the chest were acquired. COMPARISON: Prior chest radiograph dated 07/28/2016. FINDINGS: Surgical changes and devices: None. Lungs and pleura: Left basilar airspace opacity is present with silhouetting of the left hemidiaphra gm. 1.0 cm nodular opacity is seen projected over the mid right lung. Increased prominence of the in terstitium, not significantly changed compared to prior exam on 02/21/2021. Mediastinum: Mediastinal contours appear normal. Heart size is enlarged. Bones and chest wall: No suspicious bony lesions. Overlying soft tissues appear unremarkable. IMPRESSION: 1. Nodular opacity projected over the mid right lung. Chest CT is recommended for further assessment. 2. Left basilar opacity is favored to represent atelectasis. 3. Cardiomegaly and interstitial prominence. Mild edema cannot be excluded. Reviewed by: ALEN Funes on 02/23/2023 7:52 PM PDT Approved by: Vero Covarrubias MD on 02/23/2023 7:52 PM PDT Station ID: [id number]
== END 2023-02-25 12:40 | DRG 291 ==
LOC: ED 10:06 → MS2 17:57
PROVIDERS: ADMIT Specialist; ATTEND Specialist
DX: I11.0 Hypertensive heart disease with heart failure (principal); R39.198 Other difficulties with micturition; R30.0 Dysuria; R10.9 Unspecified abdominal pain; R60.0 Localized edema; R53.1 Weakness; I10 Essential (primary) hypertension; I26.09 Other pulmonary embolism with acute cor pulmonale; E87.1 Hypo-osmolality and hyponatremia; I24.8 Other forms of acute ischemic heart disease; I48.20 Chronic atrial fibrillation, unspecified; I50.813 Acute on chronic right heart failure; G89.29 Other chronic pain; E03.9 Hypothyroidism, unspecified; M06.9 Rheumatoid arthritis, unspecified; D75.89 Other specified diseases of blood and blood-forming organs; E78.00 Pure hypercholesterolemia, unspecified; M81.0 Age-related osteoporosis without current pathological fracture; I34.0 Nonrheumatic mitral (valve) insufficiency; I49.3 Ventricular premature depolarization; M54.50 Low back pain, unspecified; Z66 Do not resuscitate; Z79.01 Long term (current) use of anticoagulants; Z91.81 History of falling
CPT/HCPCS: 36415; 51701; 51798; 71045; 71046; 74177; 80048; 80051; 80053; 81001; 83690; 83880; 84484; 85025; 93005; 93306; 93970; 96374; 96375; 96376; 97162; 97167; 97530; 97535; 99284; 99285; A9270; J7512; Q9967; 81003; 87086

== ENCOUNTER 2023-03-04 08:00 | Outpatient (CLI) | payer MEDICARE, BC ==
[2023-03-04 16:52] LABS: CREATININE 0.7 mg/dL (0.6-1.3); POTASSIUM 2.9 mmol/L (3.5-4.5)
== END 2023-03-04 23:59 | disposition home or self-care (01) ==
LOC: LAB.R 08:00
PROVIDERS: ATTEND Registered Nurse
DX: I50.813 Acute on chronic right heart failure (principal); E87.1 Hypo-osmolality and hyponatremia; I48.20 Chronic atrial fibrillation, unspecified; I27.81 Cor pulmonale (chronic)
CPT/HCPCS: 80048; 83880

== ENCOUNTER 2023-03-09 08:00 | Outpatient (CLI) | payer MEDICARE, BC ==
[2023-03-09 17:51] LABS: BASOPHILS # (AUTO) 0.1 10^3/uL (0.0-0.1); BASOPHILS % (AUTO) 0.8 %; EOSINOPHILS % (AUTO) 0.2 %; HCT - HEMATOCRIT 34.7 % (37.0-47.0); HGB - HEMOGLOBIN 11.4 g/dL (12.0-16.0); LYMPHOCYTES # (AUTO) 0.4 10^3/uL (1.5-3.5); LYMPHOCYTES % (AUTO) 3.8 %; MEAN CORPUSCULAR HEMOGLOBIN 35.2 pg (27.0-31.0); MEAN CORPUSCULAR HGB CONC 32.9 g/dL (32.0-36.0); MEAN CORPUSCULAR VOLUME 107.1 fL (81.0-99.0); MEAN PLATELET VOLUME 9.1 fL (7.9-10.8); MONOCYTES # (AUTO) 0.6 10^3/uL (0.0-1.0); MONOCYTES % (AUTO) 5.4 %; NEUTROPHILS # (AUTO) 9.6 10^3/uL (1.5-6.6); PLT - PLATELET COUNT 344 10^3/uL (130-450); RED BLOOD COUNT 3.24 10^6/uL (4.20-5.40); RED CELL DISTRIBUTION WIDTH 17.4 % (12.0-15.0); WHITE BLOOD COUNT 10.8 x10^3/uL (4.8-10.8)
[2023-03-09 18:18] LABS: ALBUMIN 3.3 g/dL (3.2-5.5); ALBUMIN/GLOBULIN RATIO 1.1 (1.0-2.2); BILIRUBIN,TOTAL 1.4 mg/dL (0.2-1.0); CALCIUM 8.8 mg/dL (8.5-10.3); CREATININE 0.6 mg/dL (0.6-1.3); POTASSIUM 3.8 mmol/L (3.5-4.5); TOTAL PROTEIN 6.2 g/dL (6.4-8.9)
== END 2023-03-09 23:59 | disposition home or self-care (01) ==
LOC: LAB.R 08:00
PROVIDERS: ATTEND Registered Nurse
DX: I10 Essential (primary) hypertension (principal); Z79.01 Long term (current) use of anticoagulants; E87.1 Hypo-osmolality and hyponatremia
CPT/HCPCS: 80053; 85025

== ENCOUNTER 2023-03-18 10:45 | Outpatient (CLI) | payer MEDICARE, BC | END 2023-03-18 23:59 | disposition other institution (70) | LOC: EMS 10:45 | DX: Z04.3 Encounter for examination and observation following other accident (principal); M25.512 Pain in left shoulder; R07.81 Pleurodynia | CPT/HCPCS: A0425; A0429 ==

== ENCOUNTER 2023-03-18 10:52 | Emergency (ER) | payer MEDICARE, BC ==
--- NOTE | 2023-03-18 11:48 | ED Physician Documentation ---
History of Present Illness - Stated complaint Stated Complaint: GLF/SHOULD PX - Chief complaint Chief Complaint: Trauma Ext - History obtained from History obtained from: Patient - Additonal information Additional information: The patient comes to the emergency department chief complaint of left shoulder and rib pain after a ground-level fall. She states she was turning around to close the door and holding onto her walker when she felt dizzy and lost her balance and fell. The patient states that she did not have any shortness of breath or chest pain at that time. No palpitations. She had not been feeling dizzy or lightheaded prior and was not feeling dizzy or lightheaded after. She states that she did not hit her head or lose consciousness but did land against her left shoulder and that she has had some pain there. No spinal pain. No abdominal pain, hip pain, or extremity pain other than the left shoulder. She does have some pain on her left lateral rib cage but no shortness of breath. No other complaints at this time. 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 HEENT: Cataracts - Present Medications Home Medications: Ambulatory Orders Medication Instructions Recorded Confirmed Ascorbic Acid [Vitamin C] 1,000 mg PO DAILY 08/09/13 02/23/23 Multivit with Calcium,Iron,Min 1 each PO DAILY 08/09/13 02/23/23 [Essential Daily] Pravastatin Sodium [Pravachol] 20 mg PO HS 08/09/13 02/23/23 Acetaminophen [Tylenol] 650 mg PO Q4HR PRN tab 02/25/23 Acetaminophen/Diphenhydramine [Cvs 2 tab PO HS #0 02/25/23 02/23/23 Acetaminophen Pm Caplet] Apixaban [Eliquis] 2.5 mg PO DAILY #0 02/25/23 02/22/23 Calcium Carbonate [Tums (Calcium 2 tab PO DAILY #0 02/25/23 02/23/23 Carbonate 500mg)] Folic Acid 2 mg PO DAILY #0 02/25/23 02/23/23 Furosemide [Lasix] 40 mg PO DAILY #0 tab 02/25/23 02/23/23 Hydroxychloroquine [Plaquenil] 200 mg PO DAILY #0 02/25/23 02/23/23 Levothyroxine Sodium [Synthroid] 25 mcg PO DAILY #0 02/25/23 02/23/23 Lisinopril [Zestril] 1 tab PO DAILY #0 02/25/23 02/23/23 Melatonin 1 tab PO HS #0 02/25/23 02/23/23 Methotrexate [Methotrexate Sodium] 10 mg PO FR #0 tab 02/25/23 02/23/23 Metoprolol Succinate [Toprol Xl] 1 tab PO DAILY #0 tab 02/25/23 02/23/23 predniSONE [Prednisone] 2.5 mg PO DAILY #0 tab 02/25/23 02/22/23 - Allergies Allergies/Adverse Reactions: Allergies Allergy/AdvReac Type Severity Reaction Status Date / Time Sulfa (Sulfonamide Allergy Mild Unknown Verified 02/21/21 14:03 Antibiotics) - Social History Does the pt smoke?: No Smoking Status: Never smoker Does the pt drink ETOH?: No Does the pt have substance abuse?: No PD ED PE NORMAL - Vitals Vital signs reviewed: Yes - General General: Alert and oriented X 3, No acute distress, Well developed/nourished - HEENT HEENT: Atraumatic, PERRL, EOMI, Moist mucous membranes - Neck Neck: Supple, no meningeal sign - Cardiac Cardiac: RRR, No murmur, Strong equal pulses - Respiratory Respiratory: No respiratory distress, Clear bilaterally - Abdomen Abdomen: Soft, Non tender, Non distended - Derm Derm: Normal color, Warm and dry, No rash - Extremities Extremities: No deformity, No edema, Other (Tenderness to palpation over posterior left shoulder with decreased range of motion. No deformity. No hip or pelvic bone tenderness or instability. No tenderness over any of the other extremities or the distal left upper extremity.) - Neuro Neuro: on site manager 2-12 intact, Normal speech, Other (Alert and appropriate. Moving all 4 extremities.) - Psych Psych: Normal mood, Normal affect - Free text exam Free text exam: Tenderness palpation, mild, over left lateral rib cage. No step-off, crepitus, or edema. Results - Vitals Vitals: Vital Signs - 24 hr 03/18/23 03/18/23 11:02 13:29 Heart Rate 86 79 Respiratory 22 18 Rate Blood Pressure 116/86 H 124/86 H O2 Saturation 98 97 Oxygen O2 Source Room air - Rads (name of study) Left shoulder x-ray series Relevant Findings:: Final report received, See rad report (Negative) Left rib and chest x-ray series Relevant Findings:: Final report received, See rad report (Negative) PD Medical Decision Making - ED course Complexity details: reviewed results, re-evaluated patient, considered differential, d/w patient ED course: The patient's dizziness seem to be related to her change of body and head position, and did not seem to been present immediately before or immediately after her fall. As such, I did not feel extensive work-up with regard to the dizziness was indicated. The patient was worked up with x-ray series of her left ribs and left shoulder, which were unremarkable. We have discussed symptomatic management at home, as well as the usual indications for return.. Departure - Departure Disposition: 01 Home, Self Care Clinical Impression: Ground-level fall Contusion of shoulder, left Qualifiers: Encounter type: initial encounter Qualified Code(s): S40.012A - Contusion of left shoulder, initial encounter Contusion of rib on left side Qualifiers: Encounter type: initial encounter Qualified Code(s): S20.212A - Contusion of left front wall of thorax, initial encounter Condition: Stable Instructions: ED Contusion Rib, ED Contusion Shoulder Comments: The x-rays of your left shoulder and of your chest and ribs all look good in terms of concern of a new injury. There is no evidence of any broken bones on any level. You have most likely bruised and strained the tissues in this area and this will take some time to get feeling better. You may take Tylenol if needed to help the discomfort. Please follow-up with your primary doctor as needed. Forms: PCP List Discharge Date/Time: 03/18/23 14:18
--- NOTE | 2023-03-18 13:34 | XRAY Report ---
PROCEDURE: Ribs w/PA Chest LT INDICATIONS: pain after fall TECHNIQUE: 2 views of the left ribs were acquired, along with a single view chest. COMPARISON: None. FINDINGS: Surgical changes and devices: None. Bones and chest wall: No fractures or dislocations. No suspicious bony lesions. Overlying soft tis sues appear unremarkable. Lungs and pleura: Vascular congestion and increased pulmonary markings, with bronchial cuffing. Smal l pleural effusions. Mediastinum: Mediastinal contours appear normal. Heart size is normal. IMPRESSION: No displaced rib fracture or pneumothorax. Moderate pulmonary edema, with small pleural effusions. Reviewed by: Ant Marvin on 03/18/2023 1:33 PM PDT Approved by: Ant Marvin on 03/18/2023 1:33 PM PDT Station ID: [id number]
--- NOTE | 2023-03-18 13:37 | XRAY Report ---
PROCEDURE: Shoulder 3 View LT INDICATIONS: pain after fall TECHNIQUE: 3 views of the shoulder were acquired. COMPARISON: None. FINDINGS: Bones: No fractures or dislocations. No suspicious bony lesions. Visualized ribs appear intact. Soft tissues: No suspicious soft tissue calcifications. IMPRESSION: No acute bony abnormality. Reviewed by: Ant Marvin on 03/18/2023 1:36 PM PDT Approved by: Ant Marvin on 03/18/2023 1:36 PM PDT Station ID: [id number]
[2023-03-18 13:40] VITALS: BP 124/86; O2SAT 97
[2023-03-18] MEDS ORDERED: ACETAMINOPHEN 325 MG TABLET PO STA (14:03)
== END 2023-03-18 14:18 | disposition home or self-care (01) ==
LOC: EDUNIT# → ED 10:52
DX: S40.012A Contusion of left shoulder, initial encounter (principal); S20.212A Contusion of left front wall of thorax, initial encounter; W18.30XA Fall on same level, unspecified, initial encounter; I11.0 Hypertensive heart disease with heart failure; I50.9 Heart failure, unspecified; E78.00 Pure hypercholesterolemia, unspecified; I48.91 Unspecified atrial fibrillation; E03.9 Hypothyroidism, unspecified; Z79.899 Other long term (current) drug therapy; Z79.51 Long term (current) use of inhaled steroids
CPT/HCPCS: 71101; 73030; 99283; A9270

== ENCOUNTER 2023-04-12 15:11 | Outpatient (CLI) | payer MEDICARE, BC | END 2023-04-12 15:12 | disposition critical access hospital (66) | LOC: EMS 15:11 | DX: K62.5 Hemorrhage of anus and rectum (principal); K62.3 Rectal prolapse | CPT/HCPCS: A0425; A0429 ==

== ENCOUNTER 2023-05-20 14:44 | Outpatient (CLI) | payer MEDICARE, BC | END 2023-05-20 14:45 | disposition critical access hospital (66) | LOC: EMS 14:44 | DX: R53.1 Weakness (principal) | CPT/HCPCS: A0425; A0427 ==

== ENCOUNTER 2023-05-20 15:07 | Emergency (ER) | payer MEDICARE, BC ==
--- NOTE | 2023-05-20 16:40 | XRAY Report ---
PROCEDURE: Chest 1 View X-Ray INDICATIONS: GEN WEAKNESS TECHNIQUE: One view of the chest was acquired. COMPARISON: None. FINDINGS: Surgical changes and devices: Surgical clips in the left neck base. Lungs and pleura: Lungs hyperinflated ingesting COPD. Right pleural effusion. Increased bibasilar op acities, right greater than left. Mediastinum: Mediastinal contours appear normal. Heart is enlarged. Bones and chest wall: No suspicious bony lesions. Overlying soft tissues appear unremarkable. IMPRESSION: Right basilar opacification concerning for pneumonia. Trace right pleural effusion. Cardiomegaly. Reviewed by: Misti Echols MD, PhD on 05/20/2023 4:39 PM PDT Approved by: Misti Echols MD, PhD on 05/20/2023 4:39 PM PDT Station ID: [id number]
--- NOTE | 2023-05-20 17:09 | ED Physician Documentation ---
History of Present Illness - Stated complaint Stated Complaint: GEN WEAKNESS - Chief complaint Chief Complaint: General - History obtained from History obtained from: Patient - Additonal information Additional information: 88yoF with PMH CHF, rheumatoid arthritis presents by EMS from senior care facility for generalized weakness. Patient normally ambulatory witha walker, but today unable to walk due to bilateral lower extremity weakness. Patient denies trauma.Patient states that she feels "terrible" but cannot tell me a specific complaint. 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 HEENT: Cataracts - Present Medications Home Medications: Ambulatory Orders Medication Instructions Recorded Confirmed Ascorbic Acid [Vitamin C] 1,000 mg PO DAILY 08/09/13 05/20/23 Multivit with Calcium,Iron,Min 1 each PO DAILY 08/09/13 05/20/23 [Essential Daily] Pravastatin Sodium [Pravachol] 20 mg PO HS 08/09/13 05/20/23 Acetaminophen [Tylenol] 650 mg PO Q4HR PRN tab 02/25/23 05/20/23 Acetaminophen/Diphenhydramine [Cvs 2 tab PO HS #0 02/25/23 05/20/23 Acetaminophen Pm Caplet] Apixaban [Eliquis] 2.5 mg PO DAILY #0 02/25/23 05/20/23 Calcium Carbonate [Tums (Calcium 2 tab PO DAILY #0 02/25/23 05/20/23 Carbonate 500mg)] Folic Acid 2 mg PO DAILY #0 02/25/23 05/20/23 Furosemide [Lasix] 40 mg PO DAILY #0 tab 02/25/23 05/20/23 Hydroxychloroquine [Plaquenil] 200 mg PO DAILY #0 02/25/23 05/20/23 Levothyroxine Sodium [Synthroid] 25 mcg PO DAILY #0 02/25/23 05/20/23 Lisinopril [Zestril] 1 tab PO DAILY #0 02/25/23 05/20/23 Melatonin 1 tab PO HS #0 02/25/23 05/20/23 Methotrexate [Methotrexate Sodium] 10 mg PO FR #0 tab 02/25/23 05/20/23 Metoprolol Succinate [Toprol Xl] 1 tab PO DAILY #0 tab 02/25/23 05/20/23 predniSONE [Prednisone] 2.5 mg PO DAILY #0 tab 02/25/23 05/20/23 - Allergies Allergies/Adverse Reactions: Allergies Allergy/AdvReac Type Severity Reaction Status Date / Time Sulfa (Sulfonamide Allergy Mild Unknown Verified 05/20/23 15:22 Antibiotics) - Social History Does the pt smoke?: No Smoking Status: Never smoker Does the pt drink ETOH?: No Does the pt have substance abuse?: No PD ED PE NORMAL - Vitals Vital signs reviewed: Yes - General General: Other (debilitated, frail, chronically unwell appearing) - HEENT HEENT: Atraumatic - Neck Neck: Supple, no meningeal sign - Cardiac Cardiac: RRR - Respiratory Respiratory: Other (tachypnea) - Abdomen Abdomen: Soft, Non tender, Non distended - Derm Derm: Other (bruising upper extremities, pale) - Extremities Extremities: Other (3+ pitting edema) - Neuro Neuro: Other (moves all extremities, oriented x2) Results - Vitals Vitals: Vital Signs - 24 hr 05/20/23 05/20/23 15:20 19:09 Temperature 36.5 C Heart Rate 93 88 Respiratory 28 H 27 H Rate Blood Pressure 96/71 104/79 O2 Saturation 97 93 Oxygen O2 Source Room air - Labs Labs: Laboratory Tests 05/20/23 05/20/23 05/20/23 17:00 17:27 17:27 WBC 13.4 H RBC 3.39 L Hgb 12.6 Hct 38.2 MCV 112.7 H MCH 37.2 H MCHC 33.0 RDW 18.4 H Plt Count 161 MPV 10.3 Neut # (Auto) Not Reportable Lymph # (Auto) Not Reportable Perry # (Auto) Not Reportable Eos # (Auto) Not Reportable Baso # (Auto) Not Reportable Absolute Nucleated RBC Not Reportable Total Counted 100 Band Neuts % (Manual) 2 Abnorm Lymph % (Manual) 0 Nucleated RBC % Not Reportable Neutrophils # (Manual) 12.1 H Lymphocytes # (Manual) 1.2 L Monocytes # (Manual) 0.1 Eosinophils # (Manual) 0.0 Basophils # (Manual) 0.0 Differential Comment MANUAL DIFFERENTIAL Platelet Estimate NORMAL (130-450,000) Platelet Morphology NORMAL APPEARANCE RBC Morph Micro Appear 1+ POLYCHROMASIA INR (Fingerstick) Sodium 129 L Potassium 2.9 L Chloride 96 L Carbon Dioxide 21 Anion Gap 12.0 BUN 23 H Creatinine 0.7 Estimated GFR (MDRD) 79 L Glucose 63 L Calcium 8.0 L Magnesium 1.4 L Total Bilirubin 2.3 H AST 45 H ALT 25 Alkaline Phosphatase 243 H Total Creatine Kinase 53 Troponin I High Sens B-Natriuretic Peptide Total Protein 5.7 L Albumin 2.9 L Globulin 2.8 Albumin/Globulin Ratio 1.0 Lipase 24 Urine Color Urine Clarity Urine pH Ur Specific Fluker Urine Protein Urine Glucose (UA) Urine Ketones Urine Occult Blood Urine Nitrite Urine Bilirubin Urine Urobilinogen Ur Leukocyte Esterase Urine RBC Urine WBC Ur Squamous Epith Cells Urine Bacteria Ur Microscopic Review Urine Culture Comments Nasal Adenovirus (PCR) NOT DETECTED Nasal B. parapertussis DNA (PCR) NOT DETECTED Nasal Coronavir 229E PCR NOT DETECTED Nasal Coronavir HKU1 PCR NOT DETECTED Nasal Coronavir NL63 PCR NOT DETECTED Nasal Coronavir OC43 PCR NOT DETECTED Nasal Enterovir/Rhinovir PCR NOT DETECTED Nasal Influenza B PCR NOT DETECTED Nasal Influenza A PCR NOT DETECTED Nasal Parainfluen 1 PCR NOT DETECTED Nasal Parainfluen 2 PCR NOT DETECTED Nasal Parainfluen 3 PCR NOT DETECTED Nasal Parainfluen 4 PCR NOT DETECTED Nasal RSV (PCR) NOT DETECTED Nasal B.pertussis DNA PCR NOT DETECTED Nasal C.pneumoniae (PCR) NOT DETECTED Tam Human Metapneumo PCR NOT DETECTED Nasal M.pneumoniae (PCR) NOT DETECTED Nasal SARS-CoV-2 (PCR) NOT DETECTED 05/20/23 05/20/23 05/20/23 17:27 17:27 17:45 WBC RBC Hgb Hct MCV MCH MCHC RDW Plt Count MPV Neut # (Auto) Lymph # (Auto) Perry # (Auto) Eos # (Auto) Baso # (Auto) Absolute Nucleated RBC Total Counted Band Neuts % (Manual) Abnorm Lymph % (Manual) Nucleated RBC % Neutrophils # (Manual) Lymphocytes # (Manual) Monocytes # (Manual) Eosinophils # (Manual) Basophils # (Manual) Differential Comment Platelet Estimate Platelet Morphology RBC Morph Micro Appear INR (Fingerstick) 3.6 H Sodium Potassium Chloride Carbon Dioxide Anion Gap BUN Creatinine Estimated GFR (MDRD) Glucose Calcium Magnesium Total Bilirubin AST ALT Alkaline Phosphatase Total Creatine Kinase Troponin I High Sens 65.5 H* B-Natriuretic Peptide 1205 H Total Protein Albumin Globulin Albumin/Globulin Ratio Lipase Urine Color Urine Clarity Urine pH Ur Specific Fluker Urine Protein Urine Glucose (UA) Urine Ketones Urine Occult Blood Urine Nitrite Urine Bilirubin Urine Urobilinogen Ur Leukocyte Esterase Urine RBC Urine WBC Ur Squamous Epith Cells Urine Bacteria Ur Microscopic Review Urine Culture Comments Nasal Adenovirus (PCR) Nasal B. parapertussis DNA (PCR) Nasal Coronavir 229E PCR Nasal Coronavir HKU1 PCR Nasal Coronavir NL63 PCR Nasal Coronavir OC43 PCR Nasal Enterovir/Rhinovir PCR Nasal Influenza B PCR Nasal Influenza A PCR Nasal Parainfluen 1 PCR Nasal Parainfluen 2 PCR Nasal Parainfluen 3 PCR Nasal Parainfluen 4 PCR Nasal RSV (PCR) Nasal B.pertussis DNA PCR Nasal C.pneumoniae (PCR) Tam Human Metapneumo PCR Nasal M.pneumoniae (PCR) Nasal SARS-CoV-2 (PCR) 05/20/23 18:55 WBC RBC Hgb Hct MCV MCH MCHC RDW Plt Count MPV Neut # (Auto) Lymph # (Auto) Perry # (Auto) Eos # (Auto) Baso # (Auto) Absolute Nucleated RBC Total Counted Band Neuts % (Manual) Abnorm Lymph % (Manual) Nucleated RBC % Neutrophils # (Manual) Lymphocytes # (Manual) Monocytes # (Manual) Eosinophils # (Manual) Basophils # (Manual) Differential Comment Platelet Estimate Platelet Morphology RBC Morph Micro Appear INR (Fingerstick) Sodium Potassium Chloride Carbon Dioxide Anion Gap BUN Creatinine Estimated GFR (MDRD) Glucose Calcium Magnesium Total Bilirubin AST ALT Alkaline Phosphatase Total Creatine Kinase Troponin I High Sens B-Natriuretic Peptide Total Protein Albumin Globulin Albumin/Globulin Ratio Lipase Urine Color YELLOW Urine Clarity CLOUDY Urine pH 5.5 Ur Specific Fluker 1.025 Urine Protein 30 H Urine Glucose (UA) NEGATIVE Urine Ketones NEGATIVE Urine Occult Blood TRACE-INTA Urine Nitrite NEGATIVE Urine Bilirubin NEGATIVE Urine Urobilinogen 2 H Ur Leukocyte Esterase TRACE H Urine RBC 0-5 Urine WBC >25 H Ur Squamous Epith Cells NONE SEEN Urine Bacteria Many H Ur Microscopic Review INDICATED Urine Culture Comments INDICATED Nasal Adenovirus (PCR) Nasal B. parapertussis DNA (PCR) Nasal Coronavir 229E PCR Nasal Coronavir HKU1 PCR Nasal Coronavir NL63 PCR Nasal Coronavir OC43 PCR Nasal Enterovir/Rhinovir PCR Nasal Influenza B PCR Nasal Influenza A PCR Nasal Parainfluen 1 PCR Nasal Parainfluen 2 PCR Nasal Parainfluen 3 PCR Nasal Parainfluen 4 PCR Nasal RSV (PCR) Nasal B.pertussis DNA PCR Nasal C.pneumoniae (PCR) Tam Human Metapneumo PCR Nasal M.pneumoniae (PCR) Nasal SARS-CoV-2 (PCR) PD Medical Decision Making - ED course Complexity details: reviewed old records, reviewed results, re-evaluated patient, considered differential, d/w patient ED course: Generalized weakness and [facility] patient. No focal deficit, patient is able to tell me that she feels "terrible", but has no specific complaints. Difficulty in obtaining accurate pulse ox, however when placed on ear with good waveform oxygen saturations are 95%. Patient does have significant bilateral lower extremity edema and history of congestive heart failure. She arrived on IV fluids, will stop them at this time. Delay in obtaining laboratory work due to very difficult stick, patient required numerous attempts from both phlebotomy staff and nursing staff. Laboratory work is significant for mildly elevated white blood cell count, uncertain significance. Chest x-ray with possible pneumonia on the right-hand side. We will cover with Rocephin and azithromycin. Still pending urinalysis. Straight cath urinalysis is significant for WBCs, leukocyte esterase, numerous bacteria. Attempted to speak with daughter concerning goals of care, however she did not answer either listed number. Daughter has now arrived at bedside to discuss patient's care and wishes. Daughter states that the patient has had a precipitous decline in functionality and status in just the last 2 weeks and is not even recognizable anymore as her former self. She states that the patient does not want anything aggressive done, her primary concern is pain control and she is otherwise ready to . They state that patient was supposed to be on hospice, but at some point she was dropped from the program. They do not have any resources at her [facility] for pain. They do not want aggressive measures and their primary concern is comfort. Will keep patient overnight to speak to social work. Pain medications ordered. Hospice consult placed for morning Departure - Departure Disposition: ED Place in Observation Clinical Impression: End of life care, Generalized weakness, Hyponatremia, Hypokalemia Pneumonia Qualifiers: Pneumonia type: due to unspecified organism Laterality: right Lung location: lower lobe of lung Qualified Code(s): J18.9 - Pneumonia, unspecified organism UTI (urinary tract infection) Qualifiers: Urinary tract infection type: acute cystitis Hematuria presence: without hematuria Qualified Code(s): N30.00 - Acute cystitis without hematuria Condition: Poor Forms: PCP List
--- NOTE | 2023-05-20 17:16 | CT Report ---
PROCEDURE: HEAD WO INDICATIONS: GEN WEAKNESS/POSS FALL TECHNIQUE: Noncontrast 4.5 mm thick angled axial sections acquired from the foramen magnum to the vertex. For r adiation dose reduction, the following was used: automated exposure control, adjustment of mA and/or kV according to patient size. COMPARISON: 02/05/2023 FINDINGS: Image quality: Diagnostic. CSF spaces: Basal cisterns are patent. No extra-axial fluid collections. Ventricles are normal in size and shape. Brain: No midline shift. No intracranial masses or hemorrhage. No mass effect. Morgan-white matter in terface is normal. There cerebral volume loss for age with resultant ventricular and sulcal prominenc e. There are periventricular and deep white matter chronic small vessel ischemic changes. Atheroscler otic calcifications are noted in the intracranial segments of the bilateral internal carotid arteries . Skull and face: Calvarium and visualized facial bones are intact, without suspicious lesions. Sinuses: Visualized sinuses and mastoids are clear. IMPRESSION: No acute intracranial pathology. Age-related senescent changes and sequela of chronic small vessel ischemic disease. Reviewed by: Brando Chang MD on 05/20/2023 5:15 PM PDT Approved by: Brando Chang MD on 05/20/2023 5:15 PM PDT Station ID: [id number]
[2023-05-20 17:32] LABS: BASOPHILS % (AUTO) 0.7 %; EOSINOPHILS % (AUTO) 0.1 %; HCT - HEMATOCRIT 38.2 % (37.0-47.0); HGB - HEMOGLOBIN 12.6 g/dL (12.0-16.0); LYMPHOCYTES % (AUTO) 1.3 %; MEAN CORPUSCULAR HEMOGLOBIN 37.2 pg (27.0-31.0); MEAN CORPUSCULAR VOLUME 112.7 fL (81.0-99.0); MEAN PLATELET VOLUME 10.3 fL (7.9-10.8); MONOCYTES % (AUTO) 1.2 %; NEUTROPHILS % (AUTO) 95.9 %; PLT - PLATELET COUNT 161 10^3/uL (130-450); RED BLOOD COUNT 3.39 10^6/uL (4.20-5.40); RED CELL DISTRIBUTION WIDTH 18.4 % (12.0-15.0); WHITE BLOOD COUNT 13.4 x10^3/uL (4.8-10.8)
[2023-05-20 17:41] LABS: ABNORMAL LYMPHS % (MANUAL) 0 %
[2023-05-20 17:45] LABS: ALBUMIN 2.9 g/dL (3.2-5.5); BILIRUBIN,TOTAL 2.3 mg/dL (0.2-1.0); CREATININE 0.7 mg/dL (0.6-1.3); MAGNESIUM 1.4 mg/dL (1.7-2.3); POTASSIUM 2.9 mmol/L (3.5-4.5); TOTAL PROTEIN 5.7 g/dL (6.4-8.9)
[2023-05-20] MEDS ORDERED: ACETAMINOPHEN 325 MG TABLET PO STA (17:50)
[2023-05-20 18:04] LABS: B. PARAPERTUSSIS- RESP PCR PAN NOT DETECTED; B. PERTUSSIS- RESP PCR PANEL NOT DETECTED; C. PNEUMONIAE- RESP PCR PANEL NOT DETECTED; CORONAVIRUS 229E-RESP PCR NOT DETECTED; CORONAVIRUS HKU1-RESP PCR NOT DETECTED; CORONAVIRUS NL63-RESP PCR NOT DETECTED; CORONAVIRUS OC43-RESP PCR NOT DETECTED; HUMAN METAPNEUMOVIRUS NOT DETECTED; INFLUENZA A- RESP PCR PANEL NOT DETECTED; INFLUENZA B - RESP PCR PANEL NOT DETECTED; M. PNEUMONIAE- RESP PCR PANEL NOT DETECTED; PARAINFLUENZA VIRUS 1 NOT DETECTED; PARAINFLUENZA VIRUS 2 NOT DETECTED; PARAINFLUENZA VIRUS 3 NOT DETECTED; PARAINFLUENZA VIRUS 4 NOT DETECTED; RHINOVIRUS/ENTEROVIRUS NOT DETECTED; RSV- RESP PCR PANEL NOT DETECTED; SARS-CoV-2 -RESP PCR PANEL NOT DETECTED
[2023-05-20 18:04] LABS: BAND NEUTROPHILS % (MANUAL) 2 %; LYMPHOCYTES # (MANUAL) 1.2 10^3/uL (1.5-3.5); LYMPHOCYTES % (MANUAL) 9 %; MONOCYTES # (MANUAL) 0.1 10^3/uL (0.0-1.0); NEUTROPHILS # (MANUAL) 12.1 10^3/uL (1.5-6.6)
[2023-05-20 18:05] LABS: PLATELET ESTIMATE, MANUAL NORMAL (130-450,000) (NORMAL); PLATELET MORPHOLOGY NORMAL APPEARANCE (NORMAL)
[2023-05-20 18:06] LABS: DIFFERENTIAL COMMENT MANUAL DIFFERENTIAL
[2023-05-20] MEDS ORDERED: POTASSIUM CHLORIDE 20 MEQ TABLET PO STA (18:16)
[2023-05-20] MEDS ORDERED: AZITHROMYCIN INJ 500 MG in SODIUM CHLORIDE 0.9% 250 ML IV STA (18:24)
[2023-05-20] MEDS ORDERED: cefTRIAXone 1 GM in SODIUM CHLORIDE 0.9% MINIBAG 100 ML IV STA (18:24)
[2023-05-20 19:24] LABS: BILIRUBIN,URINE NEGATIVE (NEGATIVE); CLARITY,URINE CLOUDY (CLEAR); GLUCOSE, URINE (UA) NEGATIVE (NEGATIVE); KETONES,URINE (UA) NEGATIVE (NEGATIVE); LEUKOCYTE ESTERASE, URINE TRACE (NEGATIVE); NITRITE,URINE NEGATIVE (NEGATIVE); OCCULT BLOOD,URINE TRACE-INTA (NEGATIVE); PH,URINE 5.5 PH (5.0-7.5); PROTEIN,URINE 30 mg/dL (NEGATIVE); UROBILINOGEN,URINE 2 E.U./dL (NORMAL)
[2023-05-20 19:31] LABS: BACTERIA,URINE Many /HPF (None Seen); RBC,URINE 0-5 /HPF (0-5); SQUAMOUS EPITHELIAL CELL,UR NONE SEEN (<= Few); WBC,URINE >25 /HPF (0-5)
[2023-05-20] MEDS: FUROSEMIDE 40 MG/4 ML VIAL IVP STA ×2 (20:02→20:16)
[2023-05-20] MEDS ORDERED: KETAMINE 200 MG/20 ML VIAL IV SCH (21:00)
[2023-05-20] MEDS ORDERED: LORazepam 2 MG/ML VIAL IVP PRN (21:11)
[2023-05-20] MEDS ORDERED: fentaNYL 100 MCG/2 ML VIAL IVP PRN (21:11)
[2023-05-20] MEDS ORDERED: KETAMINE 500 MG/10 ML VIAL IVP ONE (22:00)
[2023-05-21 06:37] VITALS: O2SAT 94
[2023-05-21] MEDS ORDERED: MORPHINE SOL 10 MG/0.5 ML ORAL SYRINGE PO STA (07:54)
--- NOTE | 2023-05-21 08:03 | ED Physician Documentation ---
ED Addendum - Addendum Addendum: 05/21/23 08:03 Care from overnight emergency physician at 7 AM shift change. Supportive daughter at the bedside. Patient appears to be nearing end-of-life, unresponsive with agonal respirations. Daughter states she would prefer to have the patient back at [facility]. I spoke with the manager business development hospice who will try to expediently enroll her in hospice at [facility] and I will prescribe the hospice comfort kit. 05/21/23 08:29 Prior to transport [facility] she . Time of 8:25 AM. She is asystole on the monitor with no respirations, no heart tones on auscultation. Family at the bedside. Disposition:
[2023-05-21 08:14] VITALS: BP 86/68
== END 2023-05-21 08:25 | disposition expired ==
LOC: EDUNIT# → ED 15:07
DX: N30.00 Acute cystitis without hematuria (principal); J18.9 Pneumonia, unspecified organism; E87.1 Hypo-osmolality and hyponatremia; E87.6 Hypokalemia; I10 Essential (primary) hypertension; I48.91 Unspecified atrial fibrillation; Z51.5 Encounter for palliative care
CPT/HCPCS: 36415; 70450; 71045; 80053; 81001; 82550; 83690; 83735; 83880; 84484; 85025; 85610; 87077; 87086; 87181; 87633; 93005; 96365; 96367; 96375; 99285; A9270; 81003; 82803